=== PATIENT | male | born 1945 | race Caucasian/White ===

== ENCOUNTER → 2016-05-05 | Outpatient (CLI) | payer MEDICARE ==
[~2016-05-05] MED LIST: ASPI81TA85 PO; BACT800T5 PO; DOXY100C PO; IBUP600T26 PO; INSUDET SC; ISOS1TAB12 PO; LISI-542 PO; METF1000 PO; PARO20TA2 PO; PRAV40TA2 PO; SYNT75TA PO; TYLE1TAB5 PO
[2016-05-05 14:55] LABS: BASO % 0.6 % (0.0-1.0); EOS # 0.1 K/mm3 (0.0-0.50); EOS % 1.2 % (0.0-3.0); LARGE UNSTAINED CELL # 0.1 K/mm3 (0.0-0.4); LARGE UNSTAINED CELL % 1.6 % (0.0-4.0); LYMPH # 1.6 K/mm3 (1.5-4.5); MEAN CORPUSCULAR HEMOGLOBIN 30.8 pg (27.0-33.0); MEAN CORPUSCULAR HGB CONC 34.3 g/dl (32.0-36.5); MONO # 0.3 K/mm3 (0.0-0.8); MONO % 5.1 % (0.0-5.0); NEUTROPHILS # 4.1 K/mm3 (1.8-7.7); NEUTROPHILS % 65.6 % (36.0-66.0); PLATELET COUNT, AUTOMATED 178 k/mm3 (150-450); RED CELL DISTRIBUTION WIDTH 13.7 % (11.5-14.5); WHITE BLOOD COUNT 6.3 K/mm3 (4.0-10.0)
[2016-05-05 15:04] LABS: ALBUMIN 4.1 GM/DL (3.2-5.2); ALBUMIN/GLOBULIN RATIO 1.28 (1.00-1.93); ALKALINE PHOSPHATASE 131 U/L (45-117); ALT/SGPT 20 U/L (12-78); ANION GAP 7 MEQ/L (8-16); AST/SGOT 14 U/L (15-37); BILIRUBIN,TOTAL 0.3 MG/DL (0.2-1.0); BLOOD UREA NITROGEN 19 MG/DL (7-18); CALCIUM LEVEL 9.3 MG/DL (8.8-10.2); CARBON DIOXIDE LEVEL 31 MEQ/L (21-32); CHLORIDE LEVEL 104 MEQ/L (98-107); CREATININE FOR GFR 1.06 MG/DL (0.70-1.30); GLOMERULAR FILTRATION RATE > 60.0 (>49); GLUCOSE, FASTING 168 MG/DL (80-110); SODIUM LEVEL 142 MEQ/L (136-145); TOTAL PROTEIN 7.3 GM/DL (6.4-8.2)
[2016-05-05 15:05] LABS: POTASSIUM SERUM 5.2 MEQ/L (3.5-5.1)
== END ==
LOC: M LAB 14:19
PROVIDERS: ATTEND Podiatrist
DX: M19.071 Primary osteoarthritis, right ankle and foot (principal); Z79.899 Other long term (current) drug therapy

== ENCOUNTER → 2016-05-06 | Day surgery (SDC) | payer MEDICARE ==
[~2016-05-06] VITALS: Ht 185.4 cm; Wt 95.0 kg
[~2016-05-06] MED LIST changes: +AMPICILLIN SOD/SULBACTAM SOD 1.5 GM in D5W MINI-BAG PLUS 50 ML IV ONE; +BUPIVACAINE HCL 0.5% 10 ML VIAL As Ordered ONE; +BUPIVACAINE HCL 0.5% 10 ML VIAL XX ONE; +CLINDAMYCIN 600 MG in APPROPRIATE DILUENT 1 EA IV ONE; +CLINDAMYCIN 600 MG/50 ML PREMIX BAG As Ordered ONE; +GENTAMICIN SULF INJ 80MG/2ML VIAL (J1580) As Ordered ONE; +GENTAMICIN SULF INJ 80MG/2ML VIAL (J1580) XX ONE; +LIDOCAINE 2% INJ 100 MG/5 ML SDV (FOR ANES.) As Ordered ONE; +LIDOCAINE 2% MDV 20 ML VIAL As Ordered ONE; +LIDOCAINE 2% MDV 20 ML VIAL XX ONE; +LR 1,000 ML IV SCH; +MIDAZOLAM INJ 2 MG/2 ML VIAL (J2250) As Ordered ONE; +PROPOFOL 200 MG/20 ML VIAL As Ordered ONE; +fentaNYL 100 MCG/2 ML INJECTION (J3010) As Ordered ONE
--- NOTE | 2016-05-06 15:07 | REP ---
Portable right foot three views post op: Comparison is 12/18/2015. The proximal, mid and distal phalanges of the fourth digit and in resected as an interval change. There is resection of the second digit at the level of the proximal shaft of the middle phalange E. This is unchanged. There is an osteotomy through the mid shaft of the fifth digit proximal phalange. This is unchanged. Mineralization and joint spaces are otherwise unremarkable. There is no acute fracture or dislocation. There is a calcaneal Achilles spur, unchanged. Signed by Zuhair Edge MD 05/06/2016 02:59 P
[2016-05-06 15:20] VITALS: BP 152/72
--- NOTE | 2016-05-06 17:23 | RO ---
DATE OF PROCEDURE: 05/06/2016 PREPROCEDURE DIAGNOSIS: Osteomyelitis with stage IV ulcer fourth toe right foot. POSTPROCEDURE DIAGNOSIS: Osteomyelitis with stage IV ulcer fourth toe right foot. PROCEDURES: Fourth toe amputation at the metatarsophalangeal joint right foot. SURGEON: Dr Kip Eldridge DPM MILK BOTTLING MACHINE OPERATOR: ANESTHESIA: Local MAC. HEMOSTASIS: None. ESTIMATED BLOOD LOSS: 25 mL. IRRIGATION: Dilute gentamicin solution with a low pressure pulse lavage system. DESCRIPTION OF PROCEDURE: On 05/06/2016, this 70-year-old male was taken from his hospital room to the operating room and placed on the operating table in a supine position. Following the induction of IV sedation and local and regional anesthesia, the right lower extremity was prepped and draped in the usual aseptic manner. The right lower extremity was elevated 45 degrees from the horizontal plane, sterile draping was completed, right lower extremity was returned to the operating table. FOURTH TOE AMPUTATION METATARSOPHALANGEAL JOINT RIGHT FOOT: Attention was directed to the patient's foot where there was noted to be an ulceration on the lateral surface of the toe down to bone with fragmentation of the proximal phalanx. At this time, a modified racquet incision was made with a longer medial flap than lateral and the incision was taken right along the 1 mm margin of the ulcer. Dissection was then carried down to the capsule where the capsule was entered and the soft tissue attachments to the proximal phalanx were released and the toe was removed from the foot. Utilizing a rongeur, the head of the proximal phalanx was rongeurged and sent to pathology for aerobic and anaerobic cultures. The wound was flushed with 1 liter of the dilute gentamicin solution with the low pressure pulse lavage system. All bleeders as encountered were electrocoagulated. The skin was closed with #3-0 nylon suture in a simple interrupted type fashion. Sterile dressing was applied consisting of Adaptic, 4 x 4's, 4 x 4 splint, Yves and Kerlix. The patient having apparently tolerated the procedure well was taken from the operating room to the recovery room, vital signs stable, patient afebrile, for further monitoring by the anesthesia department. Surgical specimens removed during the operative procedure were sent to Pathology for gross and microscopic examination. Postoperative instructions given on discharge. The patient will be placed on clindamycin 300 mg every 6 hours. His questions were answered.
== END | disposition home or self-care (01) ==
LOC: M SDC 12:34
PROVIDERS: ATTEND Podiatrist
DX: M86.171 Other acute osteomyelitis, right ankle and foot (principal); E11.42 Type 2 diabetes mellitus with diabetic polyneuropathy; E11.51 Type 2 diabetes mellitus with diabetic peripheral angiopathy without gangrene; E11.621 Type 2 diabetes mellitus with foot ulcer; L97.512 Non-pressure chronic ulcer of other part of right foot with fat layer exposed; B35.1 Tinea unguium; E03.9 Hypothyroidism, unspecified; E78.5 Hyperlipidemia, unspecified; I10 Essential (primary) hypertension; K21.9 Gastro-esophageal reflux disease without esophagitis; F32.9 Major depressive disorder, single episode, unspecified; F41.9 Anxiety disorder, unspecified; Z79.899 Other long term (current) drug therapy; Z79.82 Long term (current) use of aspirin; Z86.718 Personal history of other venous thrombosis and embolism
CPT/HCPCS: 28820; 73630; 87070; 87075; 87077; 87186; 87205; 88304; 88311; J1580; J2250; J3010

== ENCOUNTER → 2016-06-10 | Outpatient (REF) | payer MEDICARE ==
[~2016-06-10] MED LIST changes: -AMPICILLIN SOD/SULBACTAM SOD 1.5 GM in D5W MINI-BAG PLUS 50 ML IV ONE; -BUPIVACAINE HCL 0.5% 10 ML VIAL As Ordered ONE; -BUPIVACAINE HCL 0.5% 10 ML VIAL XX ONE; -CLINDAMYCIN 600 MG in APPROPRIATE DILUENT 1 EA IV ONE; -CLINDAMYCIN 600 MG/50 ML PREMIX BAG As Ordered ONE; -GENTAMICIN SULF INJ 80MG/2ML VIAL (J1580) As Ordered ONE; -GENTAMICIN SULF INJ 80MG/2ML VIAL (J1580) XX ONE; -LIDOCAINE 2% INJ 100 MG/5 ML SDV (FOR ANES.) As Ordered ONE; -LIDOCAINE 2% MDV 20 ML VIAL As Ordered ONE; -LIDOCAINE 2% MDV 20 ML VIAL XX ONE; -LR 1,000 ML IV SCH; -MIDAZOLAM INJ 2 MG/2 ML VIAL (J2250) As Ordered ONE; -PROPOFOL 200 MG/20 ML VIAL As Ordered ONE; -fentaNYL 100 MCG/2 ML INJECTION (J3010) As Ordered ONE
== END ==
LOC: M LAB REF 15:16
PROVIDERS: ATTEND Podiatrist
DX: M86.171 Other acute osteomyelitis, right ankle and foot (principal); E11.621 Type 2 diabetes mellitus with foot ulcer

== ENCOUNTER → 2016-06-30 | Outpatient (REF) | payer MEDICARE ==
[~2016-06-30] MED LIST changes: -PARO20TA2 PO; +PARO20TA3 PO
== END ==
LOC: M LAB REF 17:25
PROVIDERS: ATTEND Podiatrist
DX: M86.8X7 Other osteomyelitis, ankle and foot (principal)

== ENCOUNTER → 2016-08-26 | Day surgery (SDC) | payer MEDICARE ==
[~2016-08-26] VITALS: Ht 180.3 cm; Wt 105.2 kg
[~2016-08-26] MED LIST changes: +BUPIVACAINE HCL 0.5% 10 ML VIAL XX ONE; +GABA-283 PO; +HYDROmorphone HCL 1 MG/ML SYRINGE (J1170) IV PRN; +LIDOCAINE 2% MDV 20 ML VIAL IM ONE; +LIDOCAINE 2% MDV 20 ML VIAL XX ONE; +LR 1,000 ML IV ONE; +LR 1,000 ML IV SCH; +MIDAZOLAM INJ 2 MG/2 ML VIAL (J2250) As Ordered ONE; +MORPHINE 2 MG/ML 1ML SYRINGE As Ordered ONE; +MORPHINE 2 MG/ML 1ML SYRINGE IV ONE; +NITR0.4S14 SUBQ; +ONDANSETRON 4MG/2ML VIAL (J2405) IV PRN; +PERCOCET 5MG/325MG TAB PO PRN; +PROPOFOL 200 MG/20 ML VIAL As Ordered ONE; +TOUJ1.2I SC; +VANCOMYCIN 1000 MG/20 ML VIAL (J3370) As Ordered ONE; +VANCOMYCIN HCL 1,000 MG, VIAL MATE ADAPTER 1 EACH in D5W 250 ML IV ONE; +VANCOMYCIN HCL 500 MG/10 ML VIAL (J3370) As Ordered ONE; +[UNRECOGNIZED DRUG - CODE] PO; +fentaNYL 100 MCG/2 ML INJECTION (J3010) IV PRN; +fentaNYL 250 MCG/5 ML INJECTION (J3010) As Ordered ONE
[2016-08-26 15:43] LABS: ALBUMIN 3.4 GM/DL (3.2-5.2); ALBUMIN/GLOBULIN RATIO 0.61 (1.00-1.93); ALKALINE PHOSPHATASE 196 U/L (45-117); ALT/SGPT 18 U/L (12-78); ANION GAP 5 MEQ/L (8-16); AST/SGOT 10 U/L (15-37); BILIRUBIN,TOTAL 0.4 MG/DL (0.2-1.0); BLOOD UREA NITROGEN 16 MG/DL (7-18); CALCIUM LEVEL 9.6 MG/DL (8.8-10.2); CARBON DIOXIDE LEVEL 33 MEQ/L (21-32); CHLORIDE LEVEL 100 MEQ/L (98-107); CREATININE FOR GFR 1.02 MG/DL (0.70-1.30); GLOMERULAR FILTRATION RATE > 60.0 (>42); GLUCOSE, FASTING 160 MG/DL (83-110); POTASSIUM SERUM 4.4 MEQ/L (3.5-5.1); SODIUM LEVEL 138 MEQ/L (136-145)
[2016-08-26 19:45] VITALS: BP 157/74
--- NOTE | 2016-08-26 19:51 | REP ---
RIGHT FOOT: Three views of the right foot are performed. There has been resection of the distal half of the 4th metatarsal. Several radiodense subcentimeter structures are seen in the soft-tissues distal to the remaining metatarsal. The other adjacent osseous structures of the right foot are unchanged. There is evidence of prior resection at the distal aspect of the 5th proximal phalanx and adjacent base of the 5th middle phalanx. There has also been prior resection of the distal end of the 2nd distal phalanx. Signed by Zuhair Tolbert MD 08/27/2016 01:38 P
--- NOTE | 2016-08-27 10:22 | RO ---
DATE OF PROCEDURE: 08/26/2016 PREPROCEDURE DIAGNOSIS: Osteomyelitis fourth metatarsal head right foot. POSTPROCEDURE DIAGNOSIS: Osteomyelitis fourth metatarsal head right foot. PROCEDURE: Fourth metatarsal head resection with implantation of vancomycin beads fourth metatarsal right foot. SURGEON: Kip Eldridge DPM TOBACCO SIZER: None. ANESTHESIA: Local, monitored anesthesia care (MAC). IRRIGATION: Dilute vancomycin 3 liters low pressure pulse lavage system. HEMOSTASIS: None. ESTIMATED BLOOD LOSS: 40 mL. DESCRIPTION OF OPERATION: On 08/26/2016, this 71-year-old white male was taken from his hospital room to the operating room and placed on the operating room table in a supine position. Following the induction of IV sedation, local and regional anesthesia, the right lower extremity was prepped and draped in the usual aseptic manner. Attention was directed to the patient's right foot where there was noted to be a dehiscence at the previous amputation of the fourth toe. An incision was then placed extending 3 cm in a proximal direction over the metatarsal head. There was noted to be pus inside the metatarsal head and collapse of the articular cartilage at the proximal to distal metatarsal shaft region. Utilizing a sagittal saw, an osteotomy was performed through the metatarsal. Good solid bone was noted in the location and the metatarsal head with a portion of the metatarsal shaft was removed. This was sent to micro bacteriology for aerobic and anaerobic cultures. The wound was then irrigated with 3 liters of dilute vancomycin solution. Seven 5 mm vancomycin beads were then placed into the wound. The wound was closed loosely with #3-0 nylon suture. A sterile compressive dressing was applied on the patient's right foot consisting of Adaptic, 4 x 4's, Yves and Kerlix. The patient having apparently tolerated the surgical procedure well was taken from the OR to the recovery room with vital signs stable and the patient afebrile for further monitoring by the anesthesia department. The patient is presently on erythromycin 333 mg one by mouth every 8 hours, this will be tailored according to his culture and sensitivity. His questions were answered.
== END | disposition home or self-care (01) ==
LOC: M SDC 14:55
PROVIDERS: ATTEND Podiatrist
DX: M86.8X7 Other osteomyelitis, ankle and foot (principal); T81.32XA Disruption of internal operation (surgical) wound, not elsewhere classified, initial encounter; Y83.5 Amputation of limb(s) as the cause of abnormal reaction of the patient, or of later complication, without mention of misadventure at the time of the procedure; E11.42 Type 2 diabetes mellitus with diabetic polyneuropathy; M79.674 Pain in right toe(s); E11.51 Type 2 diabetes mellitus with diabetic peripheral angiopathy without gangrene; M86.171 Other acute osteomyelitis, right ankle and foot; E11.621 Type 2 diabetes mellitus with foot ulcer; L97.512 Non-pressure chronic ulcer of other part of right foot with fat layer exposed; B35.1 Tinea unguium; L97.522 Non-pressure chronic ulcer of other part of left foot with fat layer exposed; E03.9 Hypothyroidism, unspecified; E78.5 Hyperlipidemia, unspecified; I10 Essential (primary) hypertension; F99 Mental disorder, not otherwise specified; Z79.899 Other long term (current) drug therapy; F17.200 Nicotine dependence, unspecified, uncomplicated; Z89.421 Acquired absence of other right toe(s)
CPT/HCPCS: 28112; 36415; 73630; 80053; 87070; 87075; 87077; 87186; 87205; 88304; 88311; C1713; J2250; J3010; J3370

== ENCOUNTER → 2016-09-22 | Outpatient (CLI) | payer MEDICARE ==
[~2016-09-22] MED LIST changes: -BUPIVACAINE HCL 0.5% 10 ML VIAL XX ONE; +CLOP75TA2 PO; +GABA-279 PO; -HYDROmorphone HCL 1 MG/ML SYRINGE (J1170) IV PRN; -LIDOCAINE 2% MDV 20 ML VIAL IM ONE; -LIDOCAINE 2% MDV 20 ML VIAL XX ONE; -LR 1,000 ML IV ONE; -LR 1,000 ML IV SCH; -MIDAZOLAM INJ 2 MG/2 ML VIAL (J2250) As Ordered ONE; -MORPHINE 2 MG/ML 1ML SYRINGE As Ordered ONE; -MORPHINE 2 MG/ML 1ML SYRINGE IV ONE; -ONDANSETRON 4MG/2ML VIAL (J2405) IV PRN; +PARO15TA PO; -PERCOCET 5MG/325MG TAB PO PRN; -PROPOFOL 200 MG/20 ML VIAL As Ordered ONE; -VANCOMYCIN 1000 MG/20 ML VIAL (J3370) As Ordered ONE; -VANCOMYCIN HCL 1,000 MG, VIAL MATE ADAPTER 1 EACH in D5W 250 ML IV ONE; -VANCOMYCIN HCL 500 MG/10 ML VIAL (J3370) As Ordered ONE; -fentaNYL 100 MCG/2 ML INJECTION (J3010) IV PRN; -fentaNYL 250 MCG/5 ML INJECTION (J3010) As Ordered ONE
[2016-09-22 11:59] LABS: BASO % 0.5 % (0.0-1.0); EOS # 0.1 K/mm3 (0.0-0.50); EOS % 2.2 % (0.0-3.0); LARGE UNSTAINED CELL % 0.9 % (0.0-4.0); LYMPH # 1.2 K/mm3 (1.5-4.5); LYMPH % 28.3 % (24.0-44.0); MEAN CORPUSCULAR HEMOGLOBIN 30.6 pg (27.0-33.0); MEAN CORPUSCULAR HGB CONC 34.7 g/dl (32.0-36.5); MEAN CORPUSCULAR VOLUME 88.2 fl (80.0-96.0); MONO # 0.2 K/mm3 (0.0-0.8); MONO % 5.1 % (0.0-5.0); NEUTROPHILS # 2.6 K/mm3 (1.8-7.7); PLATELET COUNT, AUTOMATED 252 k/mm3 (150-450); RED CELL DISTRIBUTION WIDTH 14.5 % (11.5-14.5); WHITE BLOOD COUNT 4.1 K/mm3 (4.0-10.0)
[2016-09-22 12:36] LABS: ALBUMIN 3.5 GM/DL (3.2-5.2); ALBUMIN/GLOBULIN RATIO 0.81 (1.00-1.93); ALKALINE PHOSPHATASE 176 U/L (45-117); ALT/SGPT 16 U/L (12-78); ANION GAP 4 MEQ/L (8-16); AST/SGOT 10 U/L (15-37); BILIRUBIN,TOTAL 0.4 MG/DL (0.2-1.0); BLOOD UREA NITROGEN 17 MG/DL (7-18); CALCIUM LEVEL 9.1 MG/DL (8.8-10.2); CARBON DIOXIDE LEVEL 31 MEQ/L (21-32); CHLORIDE LEVEL 103 MEQ/L (98-107); CREATININE FOR GFR 0.88 MG/DL (0.70-1.30); GLOMERULAR FILTRATION RATE > 60.0 (>42); GLUCOSE, FASTING 197 MG/DL (83-110); POTASSIUM SERUM 4.4 MEQ/L (3.5-5.1); SODIUM LEVEL 138 MEQ/L (136-145); TOTAL PROTEIN 7.8 GM/DL (6.4-8.2)
== END ==
LOC: M LAB 11:07
PROVIDERS: ATTEND Podiatrist
DX: Z01.818 Encounter for other preprocedural examination (principal)

== ENCOUNTER → 2016-09-23 | Day surgery (SDC) | payer MEDICARE, MEDICAID ==
[~2016-09-23] VITALS: Ht 180.3 cm; Wt 108.9 kg
[~2016-09-23] MED LIST changes: +AMPICILLIN SOD 2 GM in D5W MINI-BAG PLUS 100 ML IV ONE; +BACITRACIN PWD 50,000 UNITS VIAL As Ordered ONE; +BUPIVACAINE HCL 0.5% 30 ML VIAL As Ordered ONE; +IBUP-1022 PO; -IBUP600T26 PO; +LIDOCAINE 2% INJ 100 MG/5 ML SDV (FOR ANES.) As Ordered ONE; +LIDOCAINE 2% MDV 20 ML VIAL As Ordered ONE; +LR 1,000 ML IV ONE; -METF1000 PO; +METF10004 PO; +MIDAZOLAM INJ 2 MG/2 ML VIAL (J2250) As Ordered ONE; +NEOSPORIN GU IRRIG 20 ML VIAL As Ordered ONE; +ONDANSETRON 4MG/2ML VIAL (J2405) As Ordered ONE; +PROPOFOL 200 MG/20 ML VIAL As Ordered ONE; +VANCOMYCIN 1000 MG/20 ML VIAL (J3370) As Ordered ONE; +VANCOMYCIN HCL 500 MG/10 ML VIAL (J3370) As Ordered ONE; +[UNRECOGNIZED DRUG - CODE] PO; -[UNRECOGNIZED DRUG - CODE] PO; +dexameTHASONE 4 MG/ML 1ML VIAL (J1100) As Ordered ONE; +fentaNYL 100 MCG/2 ML INJECTION (J3010) As Ordered ONE
[2016-09-23 15:01] VITALS: BP 120/50
--- NOTE | 2016-09-23 15:21 | REP ---
For Tony right foot portable study, post op, three views: Comparison 08/26/2016. There is resection of the fourth digit at the mid shaft of the metatarsal as previously. There is new resection of the third digit at the mid shaft of the metatarsal. Radiopaque pellets are identified distal to the third digit metatarsal. There has been previous resection of the fifth digit distal portion of the proximal phalange and proximal portion of the middle phalange . This is unchanged. There has been previous resection of the second digit at the proximal shaft of the middle phalange . This is unchanged. There is a large calcaneal Achilles spur. Mineralization joint spaces otherwise are unremarkable. Signed by Zuhair Edge MD 09/23/2016 03:12 P
--- NOTE | 2016-09-24 08:13 | RO ---
DATE OF PROCEDURE: 09/23/2016 PREPROCEDURE DIAGNOSIS: Osteomyelitis 2nd metatarsal right foot. POSTPROCEDURE DIAGNOSIS: Osteomyelitis 2nd metatarsal right foot. PROCEDURE: Third toe amputation right foot. SURGEON: Dr. Kip Eldridge MANAGER ENGAGEMENT: None. ANESTHESIA: Local MAC. IRRIGATION: Dilute vancomycin solution with a low pressure pulse lavage system. IMPLANTS: 15, 5 mm vancomycin beads and 1/2 iodoform gauze. ESTIMATED BLOOD LOSS: 50 mL. DESCRIPTION OF PROCEDURE: On 09/23/2016 this 71-year-old male was taken from the hospital room to the operating room and placed on the operating table in supine position. Following induction of IV sedation, local and regional anesthesia, the right lower extremity was prepped and draped in the usual aseptic manner. Attention was directed to the patient's right foot where there was a previous incision. This incision was utilized and then two semi-elliptical incisions were then placed on the distal margin of the foot encompassing the third toe allowing a flap to be created to give exposure to the neck of metatarsal. The toe was then removed at the metatarsophalangeal joint. The capital fragment of the metatarsal was noted to be completely fragmented. Initial osteotomy was performed and this was sent to pathology for aerobic and anaerobic cultures. An additional cut was then made into the bone approximately 2 mm proximal to this to ensure good bone. This was solid, firm. No signs of residual osteomyelitis. The second metatarsal was closely in position to this wound. Therefore, it was elected not to be closed. The wound was flushed with 3 liters of dilute vancomycin solution with a low pressure pulsed lavage system and then packed with 15, 5 mm vancomycin beads and 1/2 inch iodoform gauze after appropriate hemostasis was obtained with electrocautery. Dressing was applied consisting of ABDs, 4 x 4s, Yves and Kerlix and Coban. The patient having apparently tolerated the surgical procedure well, was taken from the operating room to the recovery room for further monitoring by the anesthesia department. Surgical specimens were sent to pathology for gross and microscopic examination. Postoperative instructions will be given upon discharge. Postoperative ampicillin 500 mg every 8 hours. His questions were answered.
== END | disposition home or self-care (01) ==
LOC: M SDC 11:50
PROVIDERS: ATTEND Podiatrist
DX: M86.8X7 Other osteomyelitis, ankle and foot (principal); E11.42 Type 2 diabetes mellitus with diabetic polyneuropathy; M79.674 Pain in right toe(s); E11.51 Type 2 diabetes mellitus with diabetic peripheral angiopathy without gangrene; E11.621 Type 2 diabetes mellitus with foot ulcer; L97.512 Non-pressure chronic ulcer of other part of right foot with fat layer exposed; L97.522 Non-pressure chronic ulcer of other part of left foot with fat layer exposed; B35.1 Tinea unguium; I10 Essential (primary) hypertension; E03.9 Hypothyroidism, unspecified; E78.5 Hyperlipidemia, unspecified; Z79.899 Other long term (current) drug therapy; Z79.2 Long term (current) use of antibiotics; Z79.82 Long term (current) use of aspirin; Z79.02 Long term (current) use of antithrombotics/antiplatelets; Z79.84 Long term (current) use of oral hypoglycemic drugs; Z87.891 Personal history of nicotine dependence
CPT/HCPCS: 28810; 73630; 87070; 87075; 87077; 87205; 88304; 88311; C1713; J2250; J2405; J3010; J3370

== ENCOUNTER → 2016-12-10 | Outpatient (REF) | payer MEDICARE, MEDICAID ==
[~2016-12-10] MED LIST changes: -AMPICILLIN SOD 2 GM in D5W MINI-BAG PLUS 100 ML IV ONE; -BACITRACIN PWD 50,000 UNITS VIAL As Ordered ONE; -BUPIVACAINE HCL 0.5% 30 ML VIAL As Ordered ONE; -LIDOCAINE 2% INJ 100 MG/5 ML SDV (FOR ANES.) As Ordered ONE; -LIDOCAINE 2% MDV 20 ML VIAL As Ordered ONE; -LR 1,000 ML IV ONE; -MIDAZOLAM INJ 2 MG/2 ML VIAL (J2250) As Ordered ONE; -NEOSPORIN GU IRRIG 20 ML VIAL As Ordered ONE; -ONDANSETRON 4MG/2ML VIAL (J2405) As Ordered ONE; -PROPOFOL 200 MG/20 ML VIAL As Ordered ONE; -VANCOMYCIN 1000 MG/20 ML VIAL (J3370) As Ordered ONE; -VANCOMYCIN HCL 500 MG/10 ML VIAL (J3370) As Ordered ONE; -dexameTHASONE 4 MG/ML 1ML VIAL (J1100) As Ordered ONE; -fentaNYL 100 MCG/2 ML INJECTION (J3010) As Ordered ONE
== END ==
LOC: M LAB REF 15:10
PROVIDERS: ATTEND Podiatrist
DX: L97.512 Non-pressure chronic ulcer of other part of right foot with fat layer exposed (principal)

== ENCOUNTER → 2017-10-04 | Outpatient (REF) | payer MEDICARE, MEDICAID | LOC: M LAB REF 13:04 | DX: L03.032 Cellulitis of left toe (principal) | CPT/HCPCS: 87186 ==

== ENCOUNTER 2017-11-04 07:45 | Day surgery (SDC) | payer MEDICARE ==
[2017-11-04] MEDS ORDERED: MIDAZOLAM INJ 2 MG/2 ML VIAL (J2250) As Ordered ×2 (08:01)
[2017-11-04] MEDS ORDERED: fentaNYL 100 MCG/2 ML INJECTION (J3010) As Ordered ×4 (08:01→08:31)
[2017-11-04] MEDS ORDERED: LIDOCAINE 2% INJ 100 MG/5 ML SDV (FOR ANES.) As Ordered ×2 (08:02)
[2017-11-04] MEDS ORDERED: PROPOFOL 200 MG/20 ML VIAL As Ordered ×6 (08:02→08:26)
[2017-11-04 08:20] LABS: BEDSIDE GLUCOSE 107 MG/DL (83-110)
[2017-11-04] MEDS: LR 1,000 ML IV ×2 (08:24)
[2017-11-04] MEDS: AMPICILLIN SOD/SULBACTAM SOD 3 GM in D5W MINI-BAG PLUS 100 ML IV (09:39)
[2017-11-04] MEDS: LIDOCAINE 2% MDV 20 ML VIAL As Ordered ×2 (09:44)
[2017-11-04] MEDS: BUPIVACAINE HCL 0.5% 30 ML VIAL As Ordered ×2 (09:44)
[2017-11-04] MEDS: BACITRACIN PWD 50,000 UNITS VIAL As Ordered ×2 (10:02)
[2017-11-04] MEDS ORDERED: ONDANSETRON 4MG/2ML VIAL (J2405) As Ordered ×2 (10:05)
[2017-11-04] MEDS ORDERED: ONDANSETRON 4MG/2ML VIAL (J2405) IV ×2 (10:30)
[2017-11-04] MEDS ORDERED: LR 1,000 ML IV ×2 (10:30)
[2017-11-04] MEDS: NORCO, ANEXSIA 5/325MG TABLET (HYDROcodone/ACETAMINOPHEN) PO ×2 (10:45)
[2017-11-04] MEDS ORDERED: BUPIVACAINE HCL 0.5% 30 ML VIAL As Ordered ×2 (12:18)
[2017-11-04] MEDS ORDERED: LIDOCAINE 2% MDV 20 ML VIAL As Ordered ×2 (12:18)
== END 2017-11-04 11:22 | disposition home or self-care (01) ==
LOC: M SDC 07:45
DX: M86.172 Other acute osteomyelitis, left ankle and foot (principal); I10 Essential (primary) hypertension; E11.9 Type 2 diabetes mellitus without complications; E03.9 Hypothyroidism, unspecified; Z79.82 Long term (current) use of aspirin; Z79.899 Other long term (current) drug therapy; Z79.84 Long term (current) use of oral hypoglycemic drugs
CPT/HCPCS: 28820

== ENCOUNTER → 2017-12-05 | Outpatient (CLI) | payer MEDICARE ==
[2017-12-05 12:32] LABS: BASO % 0.3 % (0.0-1.0); EOS # 0.1 10^3/uL (0.0-0.50); EOS % 1.6 % (0.0-3.0); HEMATOCRIT 38.7 % (42.0-52.0); HEMOGLOBIN 13.3 g/dl (13.5-17.5); IMMATURE GRANULOCYTE % 0.6 % (0-3.0); LYMPH # 1.7 10^3/uL (1.5-4.5); LYMPH % 18.9 % (24.0-44.0); MEAN CORPUSCULAR HEMOGLOBIN 31.1 pg (27.0-33.0); MEAN CORPUSCULAR HGB CONC 34.4 g/dl (32.0-36.5); MEAN CORPUSCULAR VOLUME 90.6 fl (80.0-96.0); MONO # 0.5 10^3/uL (0.0-0.8); MONO % 5.6 % (0.0-5.0); NEUTROPHILS # 6.6 10^3/uL (1.8-7.7); PLATELET COUNT, AUTOMATED 300 10^3/uL (150-450); RED BLOOD COUNT 4.27 10^6/uL (4.30-6.10); RED CELL DISTRIBUTION WIDTH 12.8 % (11.5-14.5)
[2017-12-05 22:44] LABS: ALKALINE PHOSPHATASE 140 U/L (45-117); ALT/SGPT 24 U/L (12-78); ANION GAP 11 MEQ/L (8-16); AST/SGOT 22 U/L (7-37); BILIRUBIN,TOTAL 0.3 MG/DL (0.2-1.0); BLOOD UREA NITROGEN 17 MG/DL (7-18); CALCIUM LEVEL 9.4 MG/DL (8.8-10.2); CARBON DIOXIDE LEVEL 25 MEQ/L (21-32); CHLORIDE LEVEL 105 MEQ/L (98-107); CREATININE FOR GFR 1.15 MG/DL (0.70-1.30); GLOMERULAR FILTRATION RATE > 60.0 (>42); GLUCOSE, FASTING 243 MG/DL (70-100); POTASSIUM SERUM 4.8 MEQ/L (3.5-5.1); SODIUM LEVEL 141 MEQ/L (136-145); TOTAL PROTEIN 8.2 GM/DL (6.4-8.2)
[2017-12-05 23:56] LABS: ALBUMIN/GLOBULIN RATIO 0.95 (1.00-1.93)
== END ==
LOC: M LAB 11:57
DX: Z01.818 Encounter for other preprocedural examination (principal); M79.672 Pain in left foot
CPT/HCPCS: 80053

== ENCOUNTER → 2017-12-09 | Day surgery (SDC) | payer MEDICARE ==
[~2017-12-09] MED LIST changes: -ASPI81TA85 PO; -BACT800T5 PO; -CLOP75TA2 PO; -DOXY100C PO; -GABA-279 PO; -GABA-283 PO; +GLYCOPYRROLATE INJ 0.2 MG/ML 2 ML VIAL As Ordered; -IBUP-1022 PO; -INSUDET SC; -ISOS1TAB12 PO; +LIDOCAINE 2% INJ 100 MG/5 ML SDV (FOR ANES.) As Ordered; -LISI-542 PO; -METF10004 PO; +MIDAZOLAM INJ 2 MG/2 ML VIAL (J2250) As Ordered; -NITR0.4S14 SUBQ; +ONDANSETRON 4MG/2ML VIAL (J2405) As Ordered; -PARO15TA PO; -PARO20TA3 PO; -PRAV40TA2 PO; +PROPOFOL 200 MG/20 ML VIAL As Ordered; -SYNT75TA PO; -TOUJ1.2I SC; -TYLE1TAB5 PO; -[UNRECOGNIZED DRUG - CODE] PO; +ePHEDrine SULFATE 25 MG/5 ML(5MG/ML) SYRINGE As Ordered; +fentaNYL 100 MCG/2 ML INJECTION (J3010) As Ordered
[2017-12-09] MEDS: LR 1,000 ML IV (10:31)
[2017-12-09 10:40] LABS: BEDSIDE GLUCOSE 146 MG/DL (83-110)
[2017-12-09] MEDS: VANCOMYCIN HCL 500 MG/10 ML VIAL (J3370) As Ordered (11:20)
[2017-12-09] MEDS: AMPICILLIN SOD/SULBACTAM SOD 1.5 GM in D5W 50 ML IV (11:48)
[2017-12-09] MEDS: LIDOCAINE 2% MDV 20 ML VIAL As Ordered (11:54)
[2017-12-09] MEDS: BUPIVACAINE HCL 0.5% 10 ML VIAL As Ordered (11:54)
[2017-12-09] MEDS: cefTRIAXone SOD 1 GM VIAL (J0696) As Ordered (12:19)
[2017-12-09] MEDS: BACITRACIN PWD 50,000 UNITS VIAL As Ordered (12:19)
[2017-12-09] MEDS: NEOSPORIN GU IRRIG 20 ML VIAL As Ordered (12:20)
== END | disposition home or self-care (01) ==
LOC: M SDC 09:58
DX: L97.522 Non-pressure chronic ulcer of other part of left foot with fat layer exposed (principal); E11.51 Type 2 diabetes mellitus with diabetic peripheral angiopathy without gangrene; E11.621 Type 2 diabetes mellitus with foot ulcer; E11.42 Type 2 diabetes mellitus with diabetic polyneuropathy; I10 Essential (primary) hypertension; E78.5 Hyperlipidemia, unspecified; Z79.899 Other long term (current) drug therapy; Z79.84 Long term (current) use of oral hypoglycemic drugs; Z79.82 Long term (current) use of aspirin
CPT/HCPCS: 28820

== ENCOUNTER → 2017-12-28 | Outpatient (REF) | payer MEDICARE | LOC: M LAB REF 10:32 | DX: L03.119 Cellulitis of unspecified part of limb (principal) | CPT/HCPCS: 87186 ==

== ENCOUNTER → 2018-03-16 | Outpatient (REF) | payer MEDICARE ==
[~2018-03-16] MED LIST changes: +AMOX875T2 PO; +ASPI81TA85 PO; +BACT800T5 PO; +CLOP75TA2 PO; +DOXY100C PO; +GABA-1171 PO; +GABA-845 PO; -GLYCOPYRROLATE INJ 0.2 MG/ML 2 ML VIAL As Ordered; +IBUP-1022 PO; +INSUDET SC; +ISOS1TAB12 PO; -LIDOCAINE 2% INJ 100 MG/5 ML SDV (FOR ANES.) As Ordered; +LISI-542 PO; +METF10004 PO; -MIDAZOLAM INJ 2 MG/2 ML VIAL (J2250) As Ordered; +NITR0.4S14 SUBQ; -ONDANSETRON 4MG/2ML VIAL (J2405) As Ordered; +PARO15TA PO; +PARO20TA3 PO; +PRAV40TA2 PO; -PROPOFOL 200 MG/20 ML VIAL As Ordered; +SERT-155 PO; +SYNT75TA PO; +TOUJ1.2I SC; +TYLE1TAB5 PO; +[UNRECOGNIZED DRUG - CODE] PO; -ePHEDrine SULFATE 25 MG/5 ML(5MG/ML) SYRINGE As Ordered; -fentaNYL 100 MCG/2 ML INJECTION (J3010) As Ordered
== END ==
LOC: M LAB REF 15:41
PROVIDERS: ATTEND Podiatrist
DX: L03.032 Cellulitis of left toe (principal)

== ENCOUNTER → 2018-03-29 | Outpatient (REF) | payer MEDICARE | LOC: M LAB REF 13:46 | PROVIDERS: ATTEND Podiatrist | DX: M86.9 Osteomyelitis, unspecified (principal) ==

== ENCOUNTER 2018-04-11 14:18 | Day surgery (SDC) | payer MEDICAID, MEDICARE ==
[~2018-04-11] VITALS: Ht 180.3 cm; Wt 107.0 kg
[2018-04-11] MEDS ORDERED: AMPICILLIN SOD/SULBACTAM SOD 3 GM in D5W MINI-BAG PLUS 100 ML IV ONE (14:45)
[2018-04-11] MEDS ORDERED: UNASYN 3 GM VIAL As Ordered ONE (14:59)
[2018-04-11] MEDS ORDERED: LIDOCAINE 2% MDV 20 ML VIAL As Ordered ONE (15:18)
[2018-04-11] MEDS ORDERED: BUPIVACAINE HCL 0.5% 10 ML VIAL As Ordered ONE (15:18)
[2018-04-11 15:43] LABS: BASO % 0.4 % (0.0-1.0); EOS # 0.1 10^3/uL (0.0-0.50); EOS % 1.6 % (0.0-3.0); HEMATOCRIT 37.2 % (42.0-52.0); HEMOGLOBIN 12.6 g/dl (13.5-17.5); LYMPH # 1.3 10^3/uL (1.5-4.5); LYMPH % 19.3 % (24.0-44.0); MEAN CORPUSCULAR HEMOGLOBIN 30.1 pg (27.0-33.0); MEAN CORPUSCULAR HGB CONC 33.9 g/dl (32.0-36.5); MEAN CORPUSCULAR VOLUME 88.8 fl (80.0-96.0); MONO # 0.4 10^3/uL (0.0-0.8); MONO % 6.3 % (0.0-5.0); NEUTROPHILS # 4.9 10^3/uL (1.8-7.7); NEUTROPHILS % 72.3 % (36.0-66.0); PLATELET COUNT, AUTOMATED 284 10^3/uL (150-450); RED BLOOD COUNT 4.19 10^6/uL (4.30-6.10); WHITE BLOOD COUNT 6.8 10^3/uL (4.0-10.0)
[2018-04-11 16:03] LABS: ALBUMIN 3.9 GM/DL (3.2-5.2); ALT/SGPT 26 U/L (12-78); BILIRUBIN,TOTAL 0.5 MG/DL (0.2-1.0); BLOOD UREA NITROGEN 18 MG/DL (7-18); CARBON DIOXIDE LEVEL 28 MEQ/L (21-32); CHLORIDE LEVEL 104 MEQ/L (98-107); GLOMERULAR FILTRATION RATE > 60.0 (>42); GLUCOSE, FASTING 105 MG/DL (70-100); POTASSIUM SERUM 4.8 MEQ/L (3.5-5.1); SODIUM LEVEL 141 MEQ/L (136-145); TOTAL PROTEIN 7.7 GM/DL (6.4-8.2)
[2018-04-11] MEDS ORDERED: MIDAZOLAM INJ 2 MG/2 ML VIAL (J2250) As Ordered ONE (16:29)
[2018-04-11] MEDS ORDERED: fentaNYL 100 MCG/2 ML INJECTION (J3010) As Ordered ONE (16:30)
[2018-04-11] MEDS ORDERED: GENTAMICIN SULF INJ 80MG/2ML VIAL (J1580) As Ordered ONE (16:47)
[2018-04-11] MEDS ORDERED: PROPOFOL 200 MG/20 ML VIAL As Ordered ONE (16:54)
[2018-04-11] MEDS ORDERED: PERCOCET 5MG/325MG TAB PO PRN (17:30)
[2018-04-11] MEDS ORDERED: LR 1,000 ML IV SCH (17:30)
[2018-04-11] MEDS ORDERED: METOCLOPRAMIDE INJ 10MG/2ML VIAL (J2765) IV PRN (17:30)
[2018-04-11] MEDS ORDERED: ONDANSETRON 4MG/2ML VIAL (J2405) IV PRN (17:30)
[2018-04-11] MEDS ORDERED: MEPERIDINE INJ 25 MG/ML VIAL (J2175) IV PRN (17:30)
[2018-04-11] MEDS ORDERED: fentaNYL 100 MCG/2 ML INJECTION (J3010) IV PRN (17:30)
[2018-04-11 18:45] VITALS: BP 153/74
--- NOTE | 2018-04-11 19:49 | REP ---
PORTABLE LEFT FOOT COMPLETE: 04/11/2018. Clinical history: Postoperative views requested. Comparison: 12/09/2017. Findings: Four views are provided. There has been interval resection of the second toe at the level of the distal head of the distal phalanx and revision of the previously resected great toe with further resection of its proximal phalanx toward the metaphysis. There are no other interval changes. Electronically Signed by Willy Rod MD 04/11/2018 08:52 P
--- NOTE | 2018-04-12 12:27 | RO ---
DATE OF PROCEDURE: 04/11/2018 PREPROCEDURE DIAGNOSIS: Osteomyelitis distal phalanx second toe left foot. POSTPROCEDURE DIAGNOSIS: Osteomyelitis distal phalanx second toe left foot. PROCEDURE: Partial second toe amputation left foot. SURGEON: Kip Eldridge DPM ROAD MANAGER: None. ANESTHESIA: Local, monitored anesthesia care (MAC). IRRIGATION: Dilute gentamicin solution with a low pressure pulse lavage system. HEMOSTASIS: None. HARDWARE UTILIZED: None. ESTIMATED BLOOD LOSS: Less than 5 mL. DESCRIPTION OF PROCEDURE: On 04/11/2018, this 72-year-old white male was taken from his hospital room to the operating room and placed on the operating room table in a supine position. Following the induction of IV sedation, local and regional anesthesia, the left lower extremity was prepped and draped in the usual aseptic manner. Attention was directed to the patient's left toe. There was noted to be an area of dark necrosis on the distal aspect of the second toe of the left foot with an ulcer extending to bone. X-rays revealed osteomyelitis of the distal phalanx. At this time, a modified fishmouth incision was placed just distal to the proximal interphalangeal joint of the second toe. Dissection was carried straight down to bone. All bleeders as encountered were electrocoagulated. An osteotomy was then performed just proximal to the head of the proximal phalanx at the anatomical neck from dorsal to plantar through and through and the toe was removed. The distal phalanx was dissected away and sent for bone culture. Any remaining bleeders were electrocoagulated and the wound was irrigated with 1 liter of dilute gentamicin solution with a low pressure pulse lavage system. The skin was closed in a simple interrupted fashion with #3-0 nylon. Dry sterile dressing was applied consisting of Adaptic, 4x4s, Yves, Kerlix and Coban. The patient having apparently tolerated the surgical procedure well was taken from the operating room (OR) to the recovery room for further monitoring by the anesthesia department. The patient is presently on ampicillin 500 mg every 6 hours. This will be changed according to his bone cultures if necessary.
== END 2018-04-11 19:00 | disposition home or self-care (01) ==
LOC: M SDC 14:18
PROVIDERS: ATTEND Podiatrist
DX: E11.42 Type 2 diabetes mellitus with diabetic polyneuropathy (principal); E11.51 Type 2 diabetes mellitus with diabetic peripheral angiopathy without gangrene; E11.621 Type 2 diabetes mellitus with foot ulcer; L97.524 Non-pressure chronic ulcer of other part of left foot with necrosis of bone; L03.032 Cellulitis of left toe; I10 Essential (primary) hypertension; E78.5 Hyperlipidemia, unspecified; E03.9 Hypothyroidism, unspecified; G47.30 Sleep apnea, unspecified; Z79.82 Long term (current) use of aspirin; Z79.84 Long term (current) use of oral hypoglycemic drugs; Z79.899 Other long term (current) drug therapy
CPT/HCPCS: 28825; 36415; 73630; 80053; 85025; 87070; 87075; 87077; 87186; 87205; 88307; 88311; J1580; J2250; J3010

== ENCOUNTER → 2018-07-25 | Outpatient (REF) | payer MEDICARE | LOC: M LAB REF 17:23 | PROVIDERS: ATTEND Podiatrist | DX: L03.032 Cellulitis of left toe (principal) ==

== ENCOUNTER → 2018-10-02 | Outpatient (REF) | payer MEDICARE | LOC: M LAB REF 15:38 | PROVIDERS: ATTEND Podiatrist | DX: M79.675 Pain in left toe(s) (principal); L03.032 Cellulitis of left toe ==

== ENCOUNTER → 2019-01-10 | Outpatient (REF) | payer MEDICARE ==
[~2019-01-10] MED LIST changes: -SERT-155 PO; +SERT50TA29 PO
== END ==
LOC: M LAB REF 17:00
PROVIDERS: ATTEND Podiatrist
DX: L03.032 Cellulitis of left toe (principal); M79.672 Pain in left foot

== ENCOUNTER → 2019-01-25 | Outpatient (REF) | payer MEDICARE | LOC: M LAB REF 14:34 | PROVIDERS: ATTEND Podiatrist | DX: M86.9 Osteomyelitis, unspecified (principal); M79.672 Pain in left foot ==

== ENCOUNTER 2019-02-14 11:18 | Inpatient (IN) | payer MEDICARE ==
[~2019-02-14] VITALS: Ht 180.3 cm; Wt 118.9 kg
[2019-02-14] MEDS ORDERED: GABA-843 PO ×2 (11:36→12:37)
[2019-02-14] MEDS ORDERED: AMOX875T2 PO (11:36)
[2019-02-14] MEDS ORDERED: TRES1INJ SQ (11:36)
[2019-02-14] MEDS ORDERED: VANCOMYCIN HCL 1,000 MG, VIAL MATE ADAPTER 1 EACH in D5W 250 ML IV ONE (11:45)
[2019-02-14 12:19] LABS: BASO % 0.6 % (0.0-1.0); EOS # 0.1 10^3/uL (0.0-0.5); EOS % 2.2 % (0.0-3.0); HEMOGLOBIN 12.7 g/dl (13.5-17.5); LYMPH # 1.2 10^3/uL (1.5-5.0); LYMPH % 23.9 % (24.0-44.0); MEAN CORPUSCULAR HEMOGLOBIN 29.8 pg (27.0-33.0); MEAN CORPUSCULAR HGB CONC 32.6 g/dl (32.0-36.5); MEAN CORPUSCULAR VOLUME 91.5 fl (80.0-96.0); MONO # 0.3 10^3/uL (0.0-0.8); MONO % 5.6 % (0.0-5.0); NEUTROPHILS # 3.4 10^3/uL (1.5-8.5); NEUTROPHILS % 67.3 % (36.0-66.0); PLATELET COUNT, AUTOMATED 320 10^3/uL (150-450); RED BLOOD COUNT 4.26 10^6/uL (4.30-6.10)
[2019-02-14] MEDS ORDERED: CLOP75TA2 PO (12:23)
[2019-02-14] MEDS ORDERED: IBUP200C28 PO (12:37)
--- NOTE | 2019-02-14 12:51 | REP ---
Four views left foot: 02/14/2019. Indication: Foot pain. Comparison: 04/11/2018. Findings: There appears to be ulceration and erosion of the distal third new phalanx. Partial amputations of the first and second toes are redemonstrated. There is no evidence of acute fracture. Peripheral vascular disease is noted. Impression: Suspected ulceration as well as underlying osseous erosion of the distal third toe. Please correlate clinically. Stable sequelae of first and second distal phalanx amputations. Electronically Signed by Jason Ledesma DO 02/14/2019 12:42 P
[2019-02-14 12:52] LABS: ALBUMIN 3.4 GM/DL (3.2-5.2); ALT/SGPT 21 U/L (12-78); BILIRUBIN,TOTAL 0.3 MG/DL (0.2-1.0); BLOOD UREA NITROGEN 21 MG/DL (7-18); C REACTIVE PROTEIN QUANTITATIV 6.83 MG/DL (0.00-0.30); CALCIUM LEVEL 9.5 MG/DL (8.8-10.2); CARBON DIOXIDE LEVEL 28 MEQ/L (21-32); CHLORIDE LEVEL 107 MEQ/L (98-107); CREATININE FOR GFR 0.98 MG/DL (0.70-1.30); GLOMERULAR FILTRATION RATE > 60.0 (>42); GLUCOSE, FASTING 89 MG/DL (70-100); SODIUM LEVEL 141 MEQ/L (136-145); TOTAL PROTEIN 7.7 GM/DL (6.4-8.2)
[2019-02-14 13:06] LABS: INR 1.03; PROTHROMBIN TIME 13.2 SECONDS (11.8-14.0)
[2019-02-14 13:11] LABS: ERYTHROCYTE SEDIMENTATION RATE 85 mm/hr (0-20)
--- NOTE | 2019-02-14 13:27 | HPEPDOC ---
[facility] Medical History & Physical Date of Admission Feb 14, 2019 Date of Service: Feb 14, 2019 History and Physical CHIEF COMPLAINT: 3rd L toe necrosis HISTORY OF PRESENT ILLNESS: Pt is a 73yoM with PMH of DM II insulin-dependent, hx of multiple LE toe amputations follows with Dr. Johnson and complicated with diabetic neuropathy, cataracts, hypertension, hyperlipidemia, hypothyroidism, anxiety and depression and was sent over from the podiatry office for necrotic toe needing amputation. Patient reports within the last week, on Tuesday, 5 days ago, patient started to have subjective fevers, chills, and had an episode of syncope where he got up and subsequently went to sleep. He denies taking any medications or having further workup, during this time. He denies any headaches, changes in vision, chest pain, shortness of breath, nausea, vomiting, abdominal pain, issues with voiding or stooling, no numbness and tingling in the fingers, no changes in numbness in the lower extremities, denies any lower extremity pain. He was evaluated by podiatry today and sent over to [facility] ED. In the ED, patients vital signs are stable. The exception of slight hypertension ranging from systolics of 130s to 160s, he was afebrile, laboratory findings with no leukocytosis, ESR of 85, CRP of 6.83, R: Phosphatase 138, hemoglobin A1c of 6.5, creatinine is 0.98 with a GFR greater than 60, left foot x-ray revealing osseous erosion of the distal third toe with stable amputations of the first and second. Recent amputation was on 04/11/2018 where patient had partial amputation of the left second toe secondary to osteomyelitis. He also has had wound culture on the left third toe on 01/25/2019, revealing moderate Staphylococcus aureus sensitive to IV vancomycin, he also has had left third toe culture on 01/10/19 St aphylococcus aureus and Streptococcus group G, 10/02/18: pt grew Citrobacter braakii, Staphylococcus aureus, Enterococcus faecalis, and Streptococcus coagulase negative species. ROS: 10 point review of systems are negative except per above. PMH: See above. PSH: Right fifth distal phalanx of the foot resected, history of hammertoe ulcerations with DIP arthroplasty, 03/06/14: Proximal right fifth toe interphalangeal joint arthroplasty, second dairy to ulcerations of the right hammertoe, fifth toe, right buttock cyst removal, 04/11/18:Left second toe, partial amputation secondary to osteomyelitis,12/09/17: Left hallux partial amputation due to probable osteomyelitis, 09/23/16: Right third toe amputation secondary to osteomyelitis, 08/26/16 right fourth metatarsal head resection with implantation of vancomycin beads of the fourth metatarsal foot, 05/06/16: Fourth toe amputation at metatarsophalangeal joint of the right foot secondary to osteomyelitis with stage IV ulcer, 12/18/15: Partial second toe amputation at the middle phalanx of the right foot secondary to osteomyelitis, 12/31/14 terminal sy me L hallux amputation of the left foot secondary to osteomyelitis. Family history: Sr. with a history of pancreatic cancer, mother with stomach cancer, another sister with brain cancer. 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 Allergies: NKDA HOME MEDICATIONS: Please see below. PHYSICAL EXAMINATION: VITAL SIGNS: see above GENERAL APPEARANCE: male in no acute distress, pleasant. HEENT:. Normocephalic, atraumatic, moist mucous membranes, Mallampati score of 4. CARDIOVASCULAR:, S1, S2, no murmurs. LUNGS:. Clear to auscultation bilaterally. ABDOMEN:, Positive bowel sounds, soft, not guarded. MUSCULOSKELETAL: One to 2+ edema on the left lower extremity, no edema on the right, left foot third digit positive for pustular drainage, capillary refill less than 3 seconds, dorsalis pedis and posterior tibial pulses 1-2+. NEUROLOGICAL: Alert and oriented 3. PSYCHIATRIC:, Appropriate affect, has capacity. LABORATORY DATA: See below. IMAGING: see Above MICROBIOLOGY: Please see below. ASSESSMENT: Pt is a 73yoM with PMH of DM II insulin-dependent, surgical history of multiple toe amputations follows with Dr. Johnson and complicated with diabetic neuropathy, cataracts, hypertension, hyperlipidemia, hypothyroidism, anxiety and depression and was sent over from the podiatry office for necrotic toe needing amputation of the third left digit. . PLAN: #Osteomyelitis of the third left toe: Consult should podiatry, spoke with him regarding plan. We'll make patient nothing by mouth with amputation planned for 02/15/2019, hold IV fluids, continue Lovenox for DVT prophylaxis, hold 6 hours prior to operation, consult ID for antibiotic management, PT eval, follow-up on cultures, patient's revised cardiac index score 0, clear for surgery. #Diabetes: Hold home insulin, place on insulin sliding scale, patient does report recent history of hypoglycemia, continue diabetic management. #HTN: cont home meds #HLD: cont home meds #DM neuropathy: cont home meds #hypothyroidism: cont home meds #mood disorder: cont home meds #tobacco abuse: educated pt on tobacco cessation #DVT ppx: lovenox Full code Vital Signs Vital Signs Date Time Temp Pulse Resp B/P (MAP) Pulse Ox O2 Delivery O2 Flow Rate FiO2 02/14/19 11:48 02/14/19 11:19 96.0 59 18 100 Laboratory Data Labs 24H Laboratory Tests 2 02/14/19 12:01: Immature Granulocyte % (Auto) 0.4, Neutrophils (%) (Auto) 67.3H, Lymphocytes (%) (Auto) 23.9L, Monocytes (%) (Auto) 5.6H, Eosinophils (%) (Auto) 2.2, Basophils (%) (Auto) 0.6, Neutrophils # (Auto) 3.4, Lymphocytes # (Auto) 1.2L, Monocytes # (Auto) 0.3, Eosinophils # (Auto) 0.1, Basophils # (Auto) 0.0, Nucleated Red Blood Cells % (auto) 0.0, Erythrocyte Sedimentation Rate 85H, Prothrombin Time 13.2, Prothromb Time International Ratio 1.03, Anion Gap 6L, Glomerular Filtration Rate > 60.0, Calcium Level 9.5, Total Bilirubin 0.3, Aspartate Amino Transf (AST/SGOT) 19, Alanine Aminotransferase (ALT/SGPT) 21, Alkaline Phosphatase 138H, C-Reactive Protein, Quantitative 6.83H, Total Protein 7.7, Albumin 3.4, Albumin/Globulin Ratio 0.79L CBC/BMP Laboratory Tests 02/14/19 12:01 Microbiology Microbiology 02/14/19 Wound Culture, Received Pending 02/14/19 Blood Culture, Received Pending 02/14/19 Blood Culture, Received Pending Home Medications Scheduled Amoxicillin/Potassium Clav (Amox-Clav 875-125 mg Tablet) 1 Each Tablet, 1 TAB PO BID FILLED 02/05/19 FOR 14 DAYS Clopidogrel Bisulfate (Clopidogrel) 75 Mg Tablet, 75 MG PO DAILY PATIENT STATES HE RAN OUT OF THIS MEDICATION ABOUT 2 WEEKS AGO AND CALLED MD TO REFILL, BUT HASN'T GOTTEN REFILLS YET Gabapentin (Gabapentin) 300 Mg Capsule, 300 MG PO DAILY Gabapentin (Gabapentin) 300 Mg Capsule, 600 MG PO QHS Ibuprofen (Ibuprofen) 200 Mg Capsule, 400 MG PO DAILY Insulin Degludec (Tresiba Flextouch U-200) 200 Unit/1 Ml Insuln.pen, 50 UNITS SQ BID PATIENT STATES HE HIS SUGARS HAVE BEEN RUNNING LOW IN THE AFTERNOON SO HE'S ONLY BEEN USING AT NIGHT Isosorbide Mononitrate (Isosorbide Mononitrate) 10 Mg Tab, 10 MG PO BID Levothyroxine Sodium (Synthroid) 75 Mcg Tab, 75 MCG PO DAILY Lisinopril (Lisinopril) 5 Mg Tab, 5 MG PO DAILY Metformin HCl (Metformin HCl) 1,000 Mg Tab, 1,000 MG PO BID Pravastatin Sodium (Pravastatin Sodium) 40 Mg Tab, 40 MG PO QHS Sertraline HCl (Sertraline HCl) 50 Mg Tab, 50 MG PO DAILY Allergies Coded Allergies: No Known Allergies (Unverified , 11/04/17) A-FIB/CHADSVASC A-FIB History Current/History of A-Fib/PAF?: No JUAN DUNAWAY MD Feb 14, 2019 13:27
[2019-02-14] MEDS ORDERED: MOM 30ML SUSPENSION UDC PO PRN (13:30)
[2019-02-14] MEDS ORDERED: MAALOX 30 ML SUSP *UDC PO PRN (13:30)
[2019-02-14] MEDS ORDERED: DEXTROSE 50% 50 ML SYRINGE IV PRN (14:00)
[2019-02-14] MEDS ORDERED: GLUCAGON FOR INJ 1 MG VIAL (J1610) SC PRN (14:00)
[2019-02-14] MEDS ORDERED: GLUCOSE 4 GM CHEW TABLET PO PRN (14:00)
[2019-02-14 15:02] LABS: HEMOGLOBIN A1c 6.5 %
[2019-02-14 16:00] VITALS: BP 160/67
[2019-02-14] MEDS ORDERED: VANCOMYCIN HCL 1,000 MG in IV FLUID PLACE HOLDER 1 EA IV SCH (16:00)
[2019-02-14] MEDS: HumaLOG INSULIN (NovoLOG) PER UNIT SC SCH (17:19)
[2019-02-14] MEDS: ENOXAPARIN 40 MG/0.4 ML SYRINGE (J1650) SC SCH (17:20)
[2019-02-14] MEDS: ceFAZolin SOD 2 GM in IV 1 EA IV SCH (18:19)
[2019-02-14 20:05] VITALS: BP 168/79
[2019-02-14] MEDS: PRAVASTATIN 20 MG TAB PO SCH (20:12)
[2019-02-14] MEDS: DOCUSATE SODIUM 100 MG CAP PO SCH (20:12)
[2019-02-14] MEDS: GABAPENTIN 300 MG CAP PO SCH (20:12)
[2019-02-14] MEDS ORDERED: ISOSORBIDE MONONITRATE 10MG TABLET PO SCH (21:00)
[2019-02-14 21:57] VITALS: BP 190/89
[2019-02-14] MEDS: ISOSORBIDE MONONITRATE 10MG TABLET PO SCH (21:59)
[2019-02-14 22:00] VITALS: BP 147/71
[2019-02-15] MEDS: ceFAZolin SOD 2 GM in IV 1 EA IV SCH ×3 (00:33→16:38)
[2019-02-15 06:00] VITALS: BP 137/85
[2019-02-15] MEDS ORDERED: LEVOTHYROXINE 75MCG TABLET (0.075MG) PO SCH (06:00)
[2019-02-15] MEDS: D5W/0.45% SODIUM CHLORIDE 1,000 ML IV SCH ×3 (06:24→22:55)
[2019-02-15] MEDS: LEVOTHYROXINE 75MCG TABLET (0.075MG) PO SCH (06:24)
[2019-02-15 07:04] LABS: ALBUMIN 2.9 GM/DL (3.2-5.2); ALT/SGPT 17 U/L (12-78); BILIRUBIN,TOTAL 0.8 MG/DL (0.2-1.0); BLOOD UREA NITROGEN 17 MG/DL (7-18); CALCIUM LEVEL 8.9 MG/DL (8.8-10.2); CARBON DIOXIDE LEVEL 28 MEQ/L (21-32); CHLORIDE LEVEL 107 MEQ/L (98-107); CREATININE FOR GFR 0.99 MG/DL (0.70-1.30); GLOMERULAR FILTRATION RATE > 60.0 (>42); GLUCOSE, FASTING 69 MG/DL (70-100); POTASSIUM SERUM 3.8 MEQ/L (3.5-5.1); SODIUM LEVEL 140 MEQ/L (136-145); TOTAL PROTEIN 7.5 GM/DL (6.4-8.2)
[2019-02-15] MEDS: HumaLOG INSULIN (NovoLOG) PER UNIT SC SCH ×3 (07:30→18:39)
--- NOTE | 2019-02-15 07:38 | IPNPDOC ---
Date Seen The patient was seen on 02/15/19. Progress Note SUBJECTIVE: Patient had no o/n events, plan for surgery 02/16. OBJECTIVE PHYSICAL EXAMINATION: VITAL SIGNS: see above GENERAL APPEARANCE: male in no acute distress, pleasant. HEENT:. Normocephalic, atraumatic, moist mucous membranes, Mallampati score of 4. CARDIOVASCULAR:, S1, S2, no murmurs. LUNGS:. Clear to auscultation bilaterally. ABDOMEN:, Positive bowel sounds, soft, not guarded. MUSCULOSKELETAL: One to 2+ edema on the left lower extremity, no edema on the right, left foot third digit positive for pustular drainage, capillary refill less than 3 seconds, dorsalis pedis and posterior tibial pulses 1-2+. NEUROLOGICAL: Alert and oriented 3. PSYCHIATRIC:, Appropriate affect, has capacity. LABORATORY DATA: See below. IMAGING: see Above MICROBIOLOGY: Please see below. ASSESSMENT: Pt is a 73yoM with PMH of DM II insulin-dependent, surgical history of multiple toe amputations follows with Dr. Johnson and complicated with diabetic neuropathy, cataracts, hypertension, hyperlipidemia, hypothyroidism, anxiety and depression and was sent over from the podiatry office for necrotic toe needing amputation of the third left digit. . PLAN: #Osteomyelitis of the third left toe: Consult should podiatry, spoke with him regarding plan. We'll make patient nothing by mouth with amputation planned for 02/16/2019, hold IV fluids, continue Lovenox for DVT prophylaxis, hold 6 hours prior to operation, follow up with ID for antibiotic management, PT eval, follow-up on cultures, patient's revised cardiac index score 0, clear for surgery. #Diabetes: Hold home insulin, place on insulin sliding scale, patient does report recent history of hypoglycemia, continue diabetic management. #HTN: cont home meds #HLD: cont home meds #DM neuropathy: cont home meds #hypothyroidism: cont home meds #mood disorder: cont home meds #tobacco abuse: educated pt on tobacco cessation #DVT ppx: lovenox Full code VS, I&O, 24H, Fishbone Vital Signs/I&O Vital Signs Date Time Temp Pulse Resp B/P (MAP) Pulse Ox O2 Delivery O2 Flow Rate FiO2 02/15/19 06:00 98.1 57 18 137/85 (102) 93 02/14/19 22:00 Room Air I&O- Last 24 Hours up to 6 AM 02/15/19 06:00 Intake Total 620 ml Balance 620 ml Laboratory Data 24H LABS Laboratory Tests 2 02/14/19 12:01: Immature Granulocyte % (Auto) 0.4, Neutrophils (%) (Auto) 67.3H, Lymphocytes (%) (Auto) 23.9L, Monocytes (%) (Auto) 5.6H, Eosinophils (%) (Auto) 2.2, Basophils (%) (Auto) 0.6, Neutrophils # (Auto) 3.4, Lymphocytes # (Auto) 1.2L, Monocytes # (Auto) 0.3, Eosinophils # (Auto) 0.1, Basophils # (Auto) 0.0, Nucleated Red Blood Cells % (auto) 0.0, Erythrocyte Sedimentation Rate 85H, Prothrombin Time 13.2, Prothromb Time International Ratio 1.03, Anion Gap 6L, Glomerular Filtration Rate > 60.0, Estimated Mean Plasma Glucose 140H, Hemoglobin A1c 6.5, Calcium Level 9.5, Total Bilirubin 0.3, Aspartate Amino Transf (AST/SGOT) 19, A lanine Aminotransferase (ALT/SGPT) 21, Alkaline Phosphatase 138H, C-Reactive Protein, Quantitative 6.83H, Total Protein 7.7, Albumin 3.4, Albumin/Globulin Ratio 0.79L 02/14/19 16:53: Bedside Glucose (Misc Panel) 105 02/15/19 05:58: Bedside Glucose (Misc Panel) 67L 02/15/19 06:03: Anion Gap 5L, Glomerular Filtration Rate > 60.0, Calcium Level 8.9, Total Bilirubin 0.8#, Aspartate Amino Transf (AST/SGOT) 12, Alanine Aminotransferase (ALT/SGPT) 17, Alkaline Phosphatase 108, Total Protein 7.5, Albumin 2.9L, Albumin/Globulin Ratio 0.63L CBC/BMP Laboratory Tests 02/14/19 12:01 02/15/19 06:03 Microbiology Microbiology 02/14/19 Wound Culture, Received Pending 02/14/19 Blood Culture, Received Pending 02/14/19 Blood Culture, Received Pending JUAN DUNAWAY MD Feb 15, 2019 07:38
[2019-02-15] MEDS: ENOXAPARIN 40 MG/0.4 ML SYRINGE (J1650) SC SCH (09:35)
[2019-02-15] MEDS: ISOSORBIDE MONONITRATE 10MG TABLET PO SCH ×2 (09:35→16:42)
[2019-02-15] MEDS: DOCUSATE SODIUM 100 MG CAP PO SCH ×2 (09:36→20:07)
[2019-02-15] MEDS: LISINOPRIL 5 MG TAB PO SCH (09:36)
[2019-02-15] MEDS: GABAPENTIN 300 MG CAP PO SCH ×2 (09:36→20:07)
[2019-02-15] MEDS: SERTRALINE HCL 50 MG TAB PO SCH (09:36)
[2019-02-15] MEDS: PRAVASTATIN 20 MG TAB PO SCH (20:07)
[2019-02-15 22:00] VITALS: BP 152/74
[2019-02-16] VITALS (9 sets, daily range): BP systolic 117–171; BP diastolic 63–85
[2019-02-16] MEDS: HumaLOG INSULIN (NovoLOG) PER UNIT SC SCH ×5 (00:51→21:50)
[2019-02-16] MEDS: ceFAZolin SOD 2 GM in IV 1 EA IV SCH ×2 (00:51→09:36)
[2019-02-16] MEDS: RAMELTEON 8 MG TAB (ROZEREM) PO PRN (01:09)
[2019-02-16] MEDS: D5W/0.45% SODIUM CHLORIDE 1,000 ML IV SCH ×2 (03:32→11:48)
[2019-02-16] MEDS: LEVOTHYROXINE 75MCG TABLET (0.075MG) PO SCH (06:33)
[2019-02-16] MEDS: DOCUSATE SODIUM 100 MG CAP PO SCH ×2 (09:00→21:49)
[2019-02-16] MEDS ORDERED: PNEUMOCOCCAL VACCINE 0.5ML SYRINGE(90732) PNEUMOVAX 23 IM ONE (09:00)
[2019-02-16] MEDS ORDERED: FLUBLOK(EGG FREE)(QUAD)INFLUENZA VACC 0.5ML SYRINGE (90682)18YRS&OLDER IM ONE (09:00)
[2019-02-16] MEDS: ISOSORBIDE MONONITRATE 10MG TABLET PO SCH ×2 (09:00→16:55)
[2019-02-16] MEDS: GABAPENTIN 300 MG CAP PO SCH ×2 (09:00→21:49)
[2019-02-16 09:01] LABS: HEMATOCRIT 34.4 % (42.0-52.0); HEMOGLOBIN 11.4 g/dl (13.5-17.5); MEAN CORPUSCULAR HEMOGLOBIN 29.5 pg (27.0-33.0); MEAN CORPUSCULAR HGB CONC 33.1 g/dl (32.0-36.5); MEAN CORPUSCULAR VOLUME 88.9 fl (80.0-96.0); PLATELET COUNT, AUTOMATED 294 10^3/uL (150-450); RED BLOOD COUNT 3.87 10^6/uL (4.30-6.10); WHITE BLOOD COUNT 4.5 10^3/uL (4.0-10.0)
[2019-02-16 09:16] LABS: BLOOD UREA NITROGEN 13 MG/DL (7-18); CARBON DIOXIDE LEVEL 29 MEQ/L (21-32); CHLORIDE LEVEL 109 MEQ/L (98-107); CREATININE FOR GFR 0.89 MG/DL (0.70-1.30); GLOMERULAR FILTRATION RATE > 60.0 (>42); GLUCOSE, FASTING 134 MG/DL (70-100); SODIUM LEVEL 142 MEQ/L (136-145)
[2019-02-16] MEDS: PIPERACILLIN/TAZOBACTAM SOD 3.375 GM in D5W MINI-BAG PLUS 50 ML IV SCH ×2 (12:00→17:47)
[2019-02-16] MEDS ORDERED: PROPOFOL 200 MG/20 ML VIAL As Ordered ONE (12:51)
[2019-02-16] MEDS ORDERED: LIDOCAINE 2% INJ 100 MG/5 ML SDV (FOR ANES.) As Ordered ONE (12:51)
[2019-02-16] MEDS ORDERED: ONDANSETRON 4MG/2ML VIAL (J2405) As Ordered ONE (12:51)
[2019-02-16] MEDS ORDERED: fentaNYL 100 MCG/2 ML INJECTION (J3010) As Ordered ONE (12:52)
[2019-02-16] MEDS ORDERED: LIDOCAINE 2% MDV 20 ML VIAL As Ordered ONE (12:54)
[2019-02-16] MEDS ORDERED: BUPIVACAINE HCL 0.5% 30 ML VIAL As Ordered ONE (12:54)
[2019-02-16] MEDS ORDERED: MIDAZOLAM INJ 2 MG/2 ML VIAL (J2250) As Ordered ONE (12:57)
[2019-02-16] MEDS ORDERED: ZOSYN 3.375 GM VIAL (J2543) As Ordered ONE (13:17)
[2019-02-16] MEDS ORDERED: PERCOCET 5MG/325MG TAB PO PRN ×2 (15:30)
[2019-02-16] MEDS ORDERED: NORCO, ANEXSIA 5/325MG TABLET (HYDROcodone/ACETAMINOPHEN) PO PRN (15:30)
[2019-02-16] MEDS ORDERED: LR 1,000 ML IV SCH (15:30)
[2019-02-16] MEDS ORDERED: fentaNYL 100 MCG/2 ML INJECTION (J3010) IV PRN (15:30)
[2019-02-16] MEDS ORDERED: ONDANSETRON 4MG/2ML VIAL (J2405) IV PRN (15:30)
[2019-02-16] MEDS: LISINOPRIL 5 MG TAB PO SCH (16:53)
[2019-02-16] MEDS: SERTRALINE HCL 50 MG TAB PO SCH (16:55)
--- NOTE | 2019-02-16 19:49 | IPNPDOC ---
Date Seen The patient was seen on 02/16/19. Progress Note SUBJECTIVE: Patient had no o/n events, plan for surgery 02/16. OBJECTIVE PHYSICAL EXAMINATION: VITAL SIGNS: see above GENERAL APPEARANCE: male in no acute distress, pleasant. HEENT:. Normocephalic, atraumatic, moist mucous membranes, Mallampati score of 4. CARDIOVASCULAR:, S1, S2, no murmurs. LUNGS:. Clear to auscultation bilaterally. ABDOMEN:, Positive bowel sounds, soft, not guarded. MUSCULOSKELETAL: One to 2+ edema on the left lower extremity, no edema on the right, left foot third digit positive for pustular drainage, capillary refill less than 3 seconds, dorsalis pedis and posterior tibial pulses 1-2+. NEUROLOGICAL: Alert and oriented 3. PSYCHIATRIC:, Appropriate affect, has capacity. LABORATORY DATA: See below. IMAGING: see Above MICROBIOLOGY: Please see below. ASSESSMENT: Pt is a 73yoM with PMH of DM II insulin-dependent, surgical history of multiple toe amputations follows with Dr. Johnson and complicated with diabetic neuropathy, cataracts, hypertension, hyperlipidemia, hypothyroidism, anxiety and depression and was sent over from the podiatry office for necrotic toe needing amputation of the third left digit. . PLAN: #Osteomyelitis of the third left toe: Consult should podiatry, spoke with him regarding plan. We'll make patient nothing by mouth with amputation planned for 02/16/2019, hold IV fluids, continue Lovenox for DVT prophylaxis, hold 6 hours prior to operation, follow up with ID for antibiotic management, PT eval, follow-up on cultures, patient's revised cardiac index score 0, clear for surgery. #Diabetes: Hold home insulin, place on insulin sliding scale, patient does report recent history of hypoglycemia, continue diabetic management. #HTN: cont home meds #HLD: cont home meds #DM neuropathy: cont home meds #hypothyroidism: cont home meds #mood disorder: cont home meds #tobacco abuse: educated pt on tobacco cessation #DVT ppx: lovenox Full code VS, I&O, 24H, Fishbone Vital Signs/I&O Vital Signs Date Time Temp Pulse Resp B/P (MAP) Pulse Ox O2 Delivery O2 Flow Rate FiO2 02/16/19 18:00 96.7 60 18 131/85 (100) 100 Room Air I&O- Last 24 Hours up to 6 AM 02/16/19 06:00 Intake Total 2630 ml Output Total 0 ml Balance 2630 ml Laboratory Data 24H LABS Laboratory Tests 2 02/15/19 22:18: Bedside Glucose (Misc Panel) 301H 02/16/19 00:27: Bedside Glucose (Misc Panel) 342H 02/16/19 06:21: Bedside Glucose (Misc Panel) 168H 02/16/19 08:33: Nucleated Red Blood Cells % (auto) 0.0, Anion Gap 4L, Glomerular Filtration Rate > 60.0, Calcium Level 9.0 02/16/19 11:11: Bedside Glucose (Misc Panel) 104 02/16/19 15:13: Bedside Glucose (Misc Panel) 98 02/16/19 16:47: Bedside Glucose (Misc Panel) 101 CBC/BMP Laboratory Tests 02/16/19 08:33 Microbiology Microbiology 02/16/19 Wound Culture, Received Pending 02/16/19 Anaerobic Culture, Received Pending 02/14/19 Wound Culture - Preliminary, Resulted Enterobacter Cloacae Complex Staphylococcus Aureus 02/14/19 Blood Culture - Preliminary, Resulted No Growth after 48 hours. All Specime... 02/14/19 Blood Culture - Preliminary, Resulted No Growth after 48 hours. All Specime... JUAN DUNAWAY MD Feb 16, 2019 19:49
--- NOTE | 2019-02-16 20:56 | CR ---
DATE OF CONSULTATION: 02/15/2019 CONSULTATION REPORT FOR: Dr. Bobbi Fragoso REASON FOR CONSULTATION: Evaluation of left third toe osteomyelitis with necrosis. HISTORY OF PRESENT ILLNESS: Mr. Begum is a 73-year-old gentleman with a history of insulin-dependent diabetes, diabetic neuropathy, and multiple toe amputations for osteomyelitis. The patient presented to podiatry office with a necrotic third toe on the left foot. He had noticed about three weeks prior to admission an ulcer but about a week prior, he was having some subjective fevers and chills along with cellulitis of the foot. He was on Augmentin as an outpatient. The patient had an episode of syncope where he got up and subsequently went felt syncopal. He denied any headache or changes in vision. No chest pain or shortness breath. No nausea, vomiting or diarrhea. No abdominal pain. The patient since admission has noted an improvement in his foot swelling and redness. He is going to the operating room tomorrow with Dr. Eldridge for amputation of the third toe and hopefully he could be discharged home per his wishes. The patient's A1c on admission was 6.5. PAST MEDICAL HISTORY: Significant for multiple episodes of osteomyelitis of the toes. He has two toes missing on the left foot and two and a half toes missing on the right foot. On 04/11/2018, he had a left second toe amputation secondary to osteomyelitis. He had a diabetic foot ulcer on 01/25/2019 which is the beginning of this infection with methicillin-sensitive Staphylococcus aureus (MSSA). On 10/02/2018, he had MSSA and Group C Streptococcus. REVIEW OF SYSTEMS: The patient denies any nausea, vomiting, diarrhea, abdominal pain. No chest pain or shortness of breath. No upper or lower extremity weakness. PAST SURGICAL HISTORY: Right fifth distal phalanx resected, hammertoe surgery February 2014, proximal right fifth toe arthroplasty November 2017, left second toe partial amputation, multiple different amputations between 2015 and 2017. FAMILY HISTORY: Sister had pancreatic cancer. Mother had stomach cancer. SOCIAL HISTORY: He is a former smoker. He quit 30 years ago. He denies alcohol or drug use. He lives with his . ALLERGIES: No known drug allergies. MEDICATIONS: - Augmentin one tablet by mouth twice a day filled on 02/05/2019 - Plavix 75 mg daily by mouth daily. - gabapentin 300 mg by mouth every morning and 600 mg every evening - ibuprofen 400 mg by mouth daily - insulin Tresiba 50 units subcutaneous twice a day - isosorbide 10 mg by mouth twice a day - levothyroxine 75 mcg by mouth daily - lisinopril 5 mg by mouth daily - metformin 1000 mg by mouth twice a day - Pravachol 40 mg by mouth at bedtime - sertraline 50 mg by mouth daily PHYSICAL EXAMINATION: He is a healthy-looking gentleman in no acute distress. HEART: Normal S1, S2. No murmurs, rubs or gallops. LUNGS: Clear. No wheezes, rales or rhonchi. ABDOMEN: Soft, nontender. No hepatosplenomegaly. BACK: No costovertebral angle (CVA) or lumbosacral tenderness. EXTREMITIES: No clubbing or cyanosis. He has +1 pitting edema of the left foot. Right foot has no edema. He has diminished pulses bilaterally. He has absent two and a half toes on the right foot, second tip amputation, third and fourth missing. The left foot, he has absent second toe and he has distal amputation of the third toe with necrosis, necrotic tissue foul-smelling discharge, surrounding cellulitis involving the toe and minimally the foot. LABORATORY DATA: White count is 5, hemoglobin 12.7, hematocrit 39, platelets 320, 67% neutrophils, 24% lymphocytes, 5% monocytes. ESR 85. Sodium 140, potassium 3.3 chloride 107, bicarbonate 28, BUN 17, creatinine 0.99, glucose 69, hemoglobin A1c 6.5, calcium 8.9, AST 12, ALT 17, alkaline phosphatase 108, total protein 7.5, albumin 2.9. Wound culture was positive for MSSA on 01/25/2019. Foot x-ray shows ulceration of the distal third toe with stable first and second distal phalanx amputations, peripheral vascular disease is noted. IMPRESSION: Acute osteomyelitis of the third toe with gangrene of the toe, elevated sedimentation rate and C-reactive protein (CRP), all consistent with acute osteomyelitis and soft tissue abscess. The patient will undergo amputation of the third toe. He had cultures from a couple of weeks ago positive for methicillin-sensitive Staphylococcus aureus (MSSA) and therefore, the patient has been treated with IV cefazolin 2 grams every eight hours. He is scheduled to go to the operating room tomorrow with Dr. Eldridge. Postoperatively, the patient could be discharged home on Keflex 500 mg by mouth four times a day for 10 days. The case has been discussed with Dr. Fragoso who agrees with the plan.
[2019-02-16] MEDS: PRAVASTATIN 20 MG TAB PO SCH (21:49)
[2019-02-16] MEDS: ACETAMINOPHEN TAB 650MG DOSE (2X325MG) PO PRN (21:50)
[2019-02-17] MEDS: PIPERACILLIN/TAZOBACTAM SOD 3.375 GM in D5W MINI-BAG PLUS 50 ML IV SCH ×4 (00:18→18:15)
[2019-02-17] MEDS: RAMELTEON 8 MG TAB (ROZEREM) PO PRN ×2 (00:23→22:00)
[2019-02-17 01:00] VITALS: BP 166/75
[2019-02-17] MEDS: LEVOTHYROXINE 75MCG TABLET (0.075MG) PO SCH (05:47)
[2019-02-17 06:00] VITALS: BP 138/56
[2019-02-17 06:06] LABS: HEMATOCRIT 37.3 % (42.0-52.0); HEMOGLOBIN 12.1 g/dl (13.5-17.5); MEAN CORPUSCULAR HEMOGLOBIN 29.7 pg (27.0-33.0); MEAN CORPUSCULAR HGB CONC 32.4 g/dl (32.0-36.5); MEAN CORPUSCULAR VOLUME 91.4 fl (80.0-96.0); PLATELET COUNT, AUTOMATED 311 10^3/uL (150-450); RED BLOOD COUNT 4.08 10^6/uL (4.30-6.10); WHITE BLOOD COUNT 6.6 10^3/uL (4.0-10.0)
[2019-02-17 06:27] LABS: BLOOD UREA NITROGEN 15 MG/DL (7-18); CALCIUM LEVEL 8.7 MG/DL (8.8-10.2); CARBON DIOXIDE LEVEL 29 MEQ/L (21-32); CHLORIDE LEVEL 106 MEQ/L (98-107); CREATININE FOR GFR 1.05 MG/DL (0.70-1.30); GLOMERULAR FILTRATION RATE > 60.0 (>42); GLUCOSE, FASTING 174 MG/DL (70-100); POTASSIUM SERUM 3.9 MEQ/L (3.5-5.1); SODIUM LEVEL 140 MEQ/L (136-145)
--- NOTE | 2019-02-17 07:58 | IPN ---
DATE: 02/16/2019 The patient is waiting for his surgery, amputation of his third toe. He denies any nausea, vomiting, diarrhea, abdominal pain. No fever or chills. He is hungry, as he is currently nothing by mouth. LABORATORY DATA: White count is 4.5, hemoglobin 11.4, hematocrit 34.4, platelets 294. Sodium 142, potassium 4, chloride 109, bicarbonate 29, BUN 13, creatinine 0.89, glucose 134, calcium 9. Wound cultures from 01/10/2019 had methicillin sensitive Staphylococcus aureus (MSSA), group B Strep. 01/25/2019 MSSA. The patient was treated with outpatient Augmentin and cultures from admission has Enterobacter cloacae and Staphylococcus aureus. Enterobacter is resistant to cefazolin. PHYSICAL EXAMINATION: Temperature is 96.7, pulse 64, respirations 18, blood pressure 159/62, oxygen saturation 97% on room air. HEART: Normal S1, S2. No murmurs. LUNGS: Clear. No wheezes, rales or rhonchi. ABDOMEN: Obese, soft, nontender. EXTREMITIES: No edema of the right foot. +1 edema of the left foot. Left foot third digit necrotic toe with purulent drainage, foul smelling. Dorsalis pedis pulses are +1. Motor examination normal. IMPRESSION: 1. Osteomyelitis of the left third toe with microbial naresh. The patient was on IV cefazolin but had failed outpatient Augmentin, so we will switch him to IV Zosyn to cover for anaerobes and Enterobacter. Patient is going to the operating room today for amputation. He is not being discharged home today. He will probably continue with IV antibiotics until Tuesday. The patient will have intraoperative culture and choice of antibiotic for outpatient therapy will depend on the cultures. 2. Insulin dependent diabetes. Very well controlled with hemoglobin A1/c of 6.5. PLAN: Discontinue IV cefazolin and switch to IV Zosyn. The patient will not be discharged today and will probably come back with an open wound that will be closed at a later time. The case has been discussed with Dr. Fragoso and Dr. Eldridge.
--- NOTE | 2019-02-17 07:59 | IPNPDOC ---
Date Seen The patient was seen on 02/17/19. Progress Note SUBJECTIVE: POD#1 (02/16/19) s/p L 3rd digit amputation, Patients left second toe culture on 02/15/2019 reveals in his symptoms, including Enterobacter cloacae complex, Alcaligenes Faecalis (Odarans), Achromobacter spp., staph aureus, and enterococcus faecalis , started on Zosyn 02/16. Ambulating to and from the restroom without difficulty. OBJECTIVE PHYSICAL EXAMINATION: VITAL SIGNS: Please see below. GENERAL APPEARANCE: male in no acute distress, pleasant. HEENT:. Normocephalic, atraumatic, moist mucous membranes, Mallampati score of 4. CARDIOVASCULAR:, S1, S2, no murmurs. LUNGS:. Clear to auscultation bilaterally. ABDOMEN:, Positive bowel sounds, soft, not guarded. MUSCULOSKELETAL: One to 2+ edema on the left lower extremity, no edema on the ri ght, left foot third digit positive for pustular drainage, capillary refill less than 3 seconds, dorsalis pedis and posterior tibial pulses 1-2+. NEUROLOGICAL: Alert and oriented 3. PSYCHIATRIC:, Appropriate affect, has capacity. LABORATORY DATA: See below. IMAGING: see Above MICROBIOLOGY: Please see above. ASSESSMENT: Pt is a 73yoM with PMH of DM II insulin-dependent, surgical history of multiple toe amputations follows with Dr. Johnson and complicated with diabetic neuropathy, cataracts, hypertension, hyperlipidemia, hypothyroidism, anxiety and depression and was sent over from the podiatry office for necrotic toe needing amputation of the third left digit. PLAN: #Osteomyelitis of the third left toe: POD#1 s/p amputation, continue Lovenox for DVT prophylaxis, follow up with ID for antibiotic management, started on Zosyn with cx, PT eval #Diabetes: Hold home insulin, place on insulin sliding scale, patient does report recent history of hypoglycemia, continue diabetic management. #HTN: cont home meds #HLD: cont home meds #DM neuropathy: cont home meds #hypothyroidism: cont home meds #mood disorder: cont home meds #tobacco abuse: educated pt on tobacco cessation #DVT ppx: lovenox Full code Dispo home 02/19 VS, I&O, 24H, Fishbone Vital Signs/I&O Vital Signs Date Time Temp Pulse Resp B/P (MAP) Pulse Ox O2 Delivery O2 Flow Rate FiO2 02/17/19 06:00 99.7 62 18 138/56 (83) 97 Room Air I&O- Last 24 Hours up to 6 AM 02/17/19 06:00 Intake Total 1940 ml Output Total 5 ml Balance 1935 ml Laboratory Data 24H LABS Laboratory Tests 2 02/16/19 08:33: Nucleated Red Blood Cells % (auto) 0.0, Anion Gap 4L, Glomerular Filtration Rate > 60.0, Calcium Level 9.0 02/16/19 11:11: Bedside Glucose (Misc Panel) 104 02/16/19 15:13: Bedside Glucose (Misc Panel) 98 02/16/19 16:47: Bedside Glucose (Misc Panel) 101 02/17/19 05:46: Nucleated Red Blood Cells % (auto) 0.0, Anion Gap 5L, Glomerular Filtration Rate > 60.0, Calcium Level 8.7L CBC/BMP Laboratory Tests 02/16/19 08:33 02/17/19 05:46 Microbiology Microbiology 02/16/19 Wound Culture, Received Pending 02/16/19 Anaerobic Culture, Received Pending 02/14/19 Wound Culture - Final, Complete Enterobacter Cloacae Complex Alcaligenes Faecalis (Odorans) Staphylococcus Aureus Enterococcus Faecalis 02/14/19 Blood Culture - Preliminary, Resulted No Growth after 48 hours. All Specime... 02/14/19 Blood Culture - Preliminary, Resulted No Growth after 48 hours. All Specime... JUAN DUNAWAY MD Feb 17, 2019 07:59
[2019-02-17] MEDS: DOCUSATE SODIUM 100 MG CAP PO SCH ×2 (09:00→21:57)
[2019-02-17] MEDS: ISOSORBIDE MONONITRATE 10MG TABLET PO SCH ×2 (09:24→18:14)
[2019-02-17] MEDS: GABAPENTIN 300 MG CAP PO SCH ×2 (09:24→21:57)
[2019-02-17] MEDS: SERTRALINE HCL 50 MG TAB PO SCH (09:24)
[2019-02-17] MEDS: LISINOPRIL 5 MG TAB PO SCH (09:24)
[2019-02-17] MEDS: HumaLOG INSULIN (NovoLOG) PER UNIT SC SCH ×4 (09:25→20:56)
[2019-02-17 10:00] VITALS: BP 138/62
[2019-02-17] MEDS: ACETAMINOPHEN TAB 650MG DOSE (2X325MG) PO PRN (12:25)
[2019-02-17 14:00] VITALS: BP 118/68
[2019-02-17] MEDS: PRAVASTATIN 20 MG TAB PO SCH (21:57)
[2019-02-17 22:00] VITALS: BP 136/59
[2019-02-18] MEDS: PIPERACILLIN/TAZOBACTAM SOD 3.375 GM in D5W MINI-BAG PLUS 50 ML IV SCH ×4 (00:04→18:19)
[2019-02-18] MEDS: LEVOTHYROXINE 75MCG TABLET (0.075MG) PO SCH (05:55)
[2019-02-18 06:00] VITALS: BP 134/58
[2019-02-18 06:40] LABS: HEMATOCRIT 31.8 % (42.0-52.0); HEMOGLOBIN 10.5 g/dl (13.5-17.5); MEAN CORPUSCULAR HEMOGLOBIN 29.7 pg (27.0-33.0); MEAN CORPUSCULAR VOLUME 89.8 fl (80.0-96.0); PLATELET COUNT, AUTOMATED 267 10^3/uL (150-450); RED BLOOD COUNT 3.54 10^6/uL (4.30-6.10); WHITE BLOOD COUNT 4.8 10^3/uL (4.0-10.0)
[2019-02-18 07:00] LABS: BLOOD UREA NITROGEN 17 MG/DL (7-18); CARBON DIOXIDE LEVEL 30 MEQ/L (21-32); CHLORIDE LEVEL 104 MEQ/L (98-107); CREATININE FOR GFR 1.09 MG/DL (0.70-1.30); GLOMERULAR FILTRATION RATE > 60.0 (>42); GLUCOSE, FASTING 140 MG/DL (70-100); POTASSIUM SERUM 3.7 MEQ/L (3.5-5.1); SODIUM LEVEL 139 MEQ/L (136-145)
[2019-02-18] MEDS: HumaLOG INSULIN (NovoLOG) PER UNIT SC SCH ×4 (07:30→20:12)
--- NOTE | 2019-02-18 08:13 | IPNPDOC ---
Date Seen The patient was seen on 02/18/19. Progress Note SUBJECTIVE: POD#2 (02/16/19) s/p L 3rd digit amputation, Patients left second toe culture on 02/15/2019 reveals in his symptoms, including Enterobacter cloacae complex, Alcaligenes Faecalis (Odarans), Achromobacter spp., staph aureus, and enterococcus faecalis , started on Zosyn 02/16. Ambulating to and from the restroom without difficulty. Cx obtained 02/16/19 of 3rd L toe: raoultella ornitholytica, raouletta planticola, and Staph Aureus, sensitive to Bactrim. Will d/w ID. D.w Podiatry, possible dc 02/19. OBJECTIVE PHYSICAL EXAMINATION: VITAL SIGNS: Please see below. GENERAL APPEARANCE: male in no acute distress, pleasant. HEENT:. Normocephalic, atraumatic, moist mucous membranes, Mallampati score of 4. CARDIOVASCULAR:, S1, S2, no murmurs. LUNGS:. Clear to auscultation bilaterally. ABDOMEN:, Positive bowel sounds, soft, not guarded. MUSCULOSKELETAL: One to 2+ edema on the left lower extremity wrapped, no edema on the right, capillary refill less than 3 seconds, dorsalis pedis and posterior tibial pulses 1-2+. NEUROLOGICAL: Alert and oriented 3. PSYCHIATRIC:, Appropriate affect, has capacity. LABORATORY DATA: See below. IMAGING: see Above MICROBIOLOGY: Please see above. ASSESSMENT: Pt is a 73yoM with PMH of DM II insulin-dependent, hx of surgical history of multiple toe amputations and complicated with diabetic neuropathy, cataracts, hypertension, hyperlipidemia, hypothyroidism, anxiety and depression and was sent over from the podiatry office for necrotic toe needing amputation of the third left digit. PLAN: #Osteomyelitis of the third left toe: POD#2 s/p amputation, continue Lovenox for DVT prophylaxis, follow up with ID for antibiotic management, started on Zosyn with cx, PT eval, follow-up with PID and dc Abx. #Diabetes: Hold home insulin, place on insulin sliding scale, patient does report recent history of hypoglycemia, continue diabetic management. #HTN: cont home meds #HLD: cont home meds #DM neuropathy: cont home meds #hypothyroidism: cont home meds #mood disorder: cont home meds #tobacco abuse: educated pt on tobacco cessation #DVT ppx: lovenox Full code Dispo home 02/19 VS, I&O, 24H, Fishbone Vital Signs/I&O Vital Signs Date Time Temp Pulse Resp B/P (MAP) Pulse Ox O2 Delivery O2 Flow Rate FiO2 02/18/19 06:00 97.8 61 16 134/58 (83) 98 Room Air I&O- Last 24 Hours up to 6 AM 02/18/19 06:00 Intake Total 1010 ml Output Total 0 ml Balance 1010 ml Laboratory Data 24H LABS Laboratory Tests 2 02/17/19 11:47: Bedside Glucose (Misc Panel) 211H 02/17/19 16:31: Bedside Glucose (Misc Panel) 159H 02/17/19 20:37: Bedside Glucose (Misc Panel) 160H 02/18/19 06:11: Nucleated Red Blood Cells % (auto) 0.0, Anion Gap 5L, Glomerular Filtration Rate > 60.0, Calcium Level 8.0L CBC/BMP Laboratory Tests 02/18/19 06:11 Microbiology Microbiology 02/16/19 Wound Culture - Preliminary, Resulted Raoultella Ornithinolytica Raoultella Planticola Staphylococcus Aureus 02/16/19 Anaerobic Culture, Resulted Pending 02/14/19 Wound Culture - Final, Complete Enterobacter Cloacae Complex Alcaligenes Faecalis (Odorans) Staphylococcus Aureus Enterococcus Faecalis 02/14/19 Blood Culture - Preliminary, Resulted No Growth after 72 hours. All specime... 02/14/19 Blood Culture - Preliminary, Resulted No Growth after 72 hours. All specime... JUAN DUNAWAY MD Feb 18, 2019 08:13
[2019-02-18] MEDS: DOCUSATE SODIUM 100 MG CAP PO SCH ×2 (09:00→20:06)
[2019-02-18] MEDS: GABAPENTIN 300 MG CAP PO SCH ×2 (09:16→20:06)
[2019-02-18] MEDS: LISINOPRIL 5 MG TAB PO SCH (09:17)
[2019-02-18] MEDS: ISOSORBIDE MONONITRATE 10MG TABLET PO SCH ×2 (09:17→18:19)
[2019-02-18] MEDS: SERTRALINE HCL 50 MG TAB PO SCH (09:17)
[2019-02-18] MEDS: ACETAMINOPHEN TAB 650MG DOSE (2X325MG) PO PRN (09:21)
[2019-02-18 14:00] VITALS: BP 127/56
[2019-02-18] MEDS: PRAVASTATIN 20 MG TAB PO SCH (20:07)
[2019-02-18 22:00] VITALS: BP 142/64
[2019-02-19] MEDS: PIPERACILLIN/TAZOBACTAM SOD 3.375 GM in D5W MINI-BAG PLUS 50 ML IV SCH ×3 (00:48→12:00)
[2019-02-19] MEDS: RAMELTEON 8 MG TAB (ROZEREM) PO PRN (00:48)
[2019-02-19] MEDS: LEVOTHYROXINE 75MCG TABLET (0.075MG) PO SCH (05:35)
[2019-02-19 06:00] VITALS: BP 138/59
--- NOTE | 2019-02-19 06:26 | IPN ---
DATE: 02/18/2019 at 5:16 p.m. CHIEF COMPLAINT: Patient seen at bedside for evaluation of his left foot. The bandage was removed today. There is an iodoform gauze drain in place. This was removed. The wound margins display good granulation tissue and are viable. Laboratory studies were reviewed. White count is 4.8. Bone culture reveals Staphylococcus aureus and Raoultella which is sensitive to Bactrim and ampicillin sulbactam. The patient has been on Augmentin. His Staphylococcus aureus culture is pending, however, most likely it is methicillin sensitive since he has grown this in the past. ASSESSMENT: Status post third toe amputation left foot. PLAN: The drain was pulled. A dry sterile dressing was applied. The patient will have his antibiotics monitored by infectious disease. He will be seen in my office next week for evaluation. His questions were answered. The patient can be discharged on by mouth antibiotics in the morning.
[2019-02-19 08:00] LABS: BLOOD UREA NITROGEN 15 MG/DL (7-18); CALCIUM LEVEL 8.9 MG/DL (8.8-10.2); CARBON DIOXIDE LEVEL 29 MEQ/L (21-32); CHLORIDE LEVEL 108 MEQ/L (98-107); CREATININE FOR GFR 0.97 MG/DL (0.70-1.30); GLOMERULAR FILTRATION RATE > 60.0 (>42); GLUCOSE, FASTING 139 MG/DL (70-100); POTASSIUM SERUM 3.6 MEQ/L (3.5-5.1); SODIUM LEVEL 143 MEQ/L (136-145)
[2019-02-19 08:25] VITALS: BP 138/61
[2019-02-19] MEDS: DOCUSATE SODIUM 100 MG CAP PO SCH (08:25)
[2019-02-19] MEDS: ISOSORBIDE MONONITRATE 10MG TABLET PO SCH (08:25)
[2019-02-19] MEDS: HumaLOG INSULIN (NovoLOG) PER UNIT SC SCH ×2 (08:25→12:00)
[2019-02-19] MEDS: SERTRALINE HCL 50 MG TAB PO SCH (08:25)
[2019-02-19] MEDS: GABAPENTIN 300 MG CAP PO SCH (08:25)
[2019-02-19] MEDS: LISINOPRIL 5 MG TAB PO SCH (08:26)
--- NOTE | 2019-02-19 08:52 | DS.PDOC ---
Discharge Summary General Date of Admission Feb 14, 2019 at 13:27 Date of Discharge 02/19/19 Discharge Summary PROCEDURES PERFORMED DURING STAY: Amputation of the left third digit. ADMITTING DIAGNOSES: 1. Osteomyelitis. DISCHARGE DIAGNOSES: 1. Osteomyelitis. COMPLICATIONS/CHIEF COMPLAINT: Diabetes Osteomyelitis 3RD Toe Left Foot. HISTORY OF PRESENT ILLNESS & HOSPITAL COURSE: Pt is a 73yoM with PMH of DM II insulin-dependent, hx of surgical history of multiple toe amputations and compli cated with diabetic neuropathy, cataracts, hypertension, hyperlipidemia, hypothyroidism, anxiety and depression and was sent over from the podiatry office for necrotic toe needing amputation of the third left digit. He has osteomyelitis of the third left toe, POD#3 (02/16/19) s/p amputation, was sta rted on Zosyn with cx. Patients left second toe culture on 02/15/2019 reveals in his symptoms, including Enterobacter cloacae complex, Alcaligenes Faecalis (Odarans), Achromobacter spp., staph aureus, and enterococcus faecalis , started on Zosyn 02/16 (received 3 days). Cx obtained 02/16/19 of 3rd L toe: raoultella ornitholytica, raouletta planticola, and Staph Aureus, sensitive to Bactrim. Patient was ambulating without difficulty. On telemetry, he was found to be bradycardic, EKG reveals a heart rate consistent with bradycardia, in comparison to his EKG in 2014, was also bradycardic. EKG also revealed possible right bundle branch block, patient was asymptomatic, he denies any headaches, lightheadedness, dizziness, chest pain, shortness of breath. He was instructed to follow-up with his PCP to 2 weeks for hospitalization and possible further workup of bradycardia. Discussed case with infectious disease, well discharge him on appropriate antibiotics and course. No other changes with home medications. He is to follow-up with podiatry in 1-2 weeks. All questions were answered. DISCHARGE MEDICATIONS: Please see below. ALLERGIES: Please see below. PHYSICAL EXAMINATION ON DISCHARGE: VITAL SIGNS: Please see below. GENERAL APPEARANCE: male in no acute distress, pleasant. HEENT:. Normocephalic, atraumatic, moist mucous membranes, Mallampati score of 4. CARDIOVASCULAR:, S1, S2, no murmurs. LUNGS:. Clear to auscultation bilaterally. ABDOMEN:, Positive bowel sounds, soft, not guarded. MUSCULOSKELETAL: L Foot wrapped, wound closed, draining serous to pustular drainage NEUROLOGICAL: Alert and oriented 3. PSYCHIATRIC:, Appropriate affect, has capacity. LABORATORY DATA: Please see below. IMAGING: see H&P PROGNOSIS: Good ACTIVITY: As tolerated. DIET: diabetic/heart healthy DISCHARGE PLAN: home DISPOSITION: home. DISCHARGE INSTRUCTIONS: 1. see above. ITEMS TO FOLLOWUP ON ON OUTPATIENT: 1. see above. DISCHARGE CONDITION: Stable. TIME SPENT ON DISCHARGE: 35 minutes. Vital Signs/I&Os Vital Signs Date Time Temp Pulse Resp B/P (MAP) Pulse Ox O2 Delivery O2 Flow Rate FiO2 02/19/19 08:25 138/61 02/19/19 06:22 49 02/19/19 06:00 98.1 17 96 Room Air I&O- Last 24 Hours up to 6 AM 02/19/19 06:00 Intake Total 1840 ml Balance 1840 ml Laboratory Data Labs 24H Laboratory Tests 2 02/18/19 11:30: Bedside Glucose (Misc Panel) 174H 02/18/19 16:24: Bedside Glucose (Misc Panel) 278H 02/18/19 20:05: Bedside Glucose (Misc Panel) 321H 02/19/19 05:49: Anion Gap 6L, Glomerular Filtration Rate > 60.0, Calcium Level 8.9 02/19/19 08:14: Bedside Glucose (Misc Panel) 150H CBC/BMP Laboratory Tests 02/19/19 05:49 FSBS Laboratory Tests Test 02/18/19 11:30 02/18/19 16:24 02/18/19 20:05 02/19/19 08:14 Range/Units Bedside Glucose (Misc Panel) 174 278 321 150 83-110 MG/DL Microbiology Microbiology 02/16/19 Wound Culture - Final, Resulted Raoultella Ornithinolytica Raoultella Planticola Staphylococcus Aureus Enterococcus Faecalis 02/16/19 Anaerobic Culture, Resulted Pending 02/14/19 Wound Culture - Final, Complete Enterobacter Cloacae Complex Alcaligenes Faecalis (Odorans) Staphylococcus Aureus Enterococcus Faecalis 02/14/19 Blood Culture - Preliminary, Resulted No Growth after 72 hours. All specime... 02/14/19 Blood Culture - Preliminary, Resulted No Growth after 72 hours. All specime... Discharge Medications Scheduled Clopidogrel Bisulfate (Clopidogrel) 75 Mg Tablet, 75 MG PO DAILY, (Reported) PATIENT STATES HE RAN OUT OF THIS MEDICATION ABOUT 2 WEEKS AGO AND CALLED MD TO REFILL, BUT HASN'T GOTTEN REFILLS YET Gabapentin (Gabapentin) 300 Mg Capsule, 300 MG PO DAILY, (Reported) Gabapentin (Gabapentin) 300 Mg Capsule, 600 MG PO QHS, (Reported) Ibuprofen (Ibuprofen) 200 Mg Capsule, 400 MG PO DAILY, (Reported) Insulin Degludec (Tresiba Flextouch U-200) 200 Unit/1 Ml Insuln.pen, 50 UNITS SQ BID, (Reported) PATIENT STATES HE HIS SUGARS HAVE BEEN RUNNING LOW IN THE AFTERNOON SO HE'S ONLY BEEN USING AT NIGHT Isosorbide Mononitrate (Isosorbide Mononitrate) 10 Mg Tab, 10 MG PO BID, (Reported) Levofloxacin (Levofloxacin) 500 Mg Tablet, 1 TAB PO DAILY Levothyroxine Sodium (Synthroid) 75 Mcg Tab, 75 MCG PO DAILY, (Reported) Lisinopril (Lisinopril) 5 Mg Tab, 5 MG PO DAILY, (Reported) Metformin HCl (Metformin HCl) 1,000 Mg Tab, 1,000 MG PO BID, (Reported) Pravastatin Sodium (Pravastatin Sodium) 40 Mg Tab, 40 MG PO QHS, (Reported) Sertraline HCl (Sertraline HCl) 50 Mg Tab, 50 MG PO DAILY, (Reported) Allergies Coded Allergies: No Known Allergies (Unverified , 11/04/17) JUAN DUNAWAY MD Feb 19, 2019 08:52
[2019-02-19 09:03] LABS: HEMATOCRIT 32.9 % (42.0-52.0); HEMOGLOBIN 10.9 g/dl (13.5-17.5); MEAN CORPUSCULAR HEMOGLOBIN 29.8 pg (27.0-33.0); MEAN CORPUSCULAR HGB CONC 33.1 g/dl (32.0-36.5); MEAN CORPUSCULAR VOLUME 89.9 fl (80.0-96.0); PLATELET COUNT, AUTOMATED 285 10^3/uL (150-450); RED BLOOD COUNT 3.66 10^6/uL (4.30-6.10); WHITE BLOOD COUNT 4.6 10^3/uL (4.0-10.0)
[2019-02-19] MEDS ORDERED: BACT800T5 PO (10:02)
[2019-02-19] MEDS ORDERED: AMLO5TAB6 PO (10:12)
[2019-02-19] MEDS ORDERED: LEVO500T3 PO (11:07)
--- NOTE | 2019-02-19 16:28 | RO ---
DATE OF PROCEDURE: 02/16/2019 PREPROCEDURE DIAGNOSIS: Osteomyelitis third toe left foot. POSTPROCEDURE DIAGNOSIS: Osteomyelitis third toe left foot. PROCEDURE: Third toe amputation left foot. SURGEON: Kip Eldridge DPM AUTOMOBILE LOCATOR: None. ANESTHESIA: Local MAC HEMOSTASIS: None. ESTIMATED BLOOD LOSS: 5 mL. DRAINS UTILIZED: 1/4-inch Iodoform gauze. IRRIGATION: 3 liters dilute gentamicin solution. DESCRIPTION OF PROCEDURE: On 02/16/2019, this 79-year-old male was taken from his hospital room to the operating room and placed on the operating table in the supine position. Following the induction of IV sedation and local and regional anesthesia, the left lower extremity was prepped and draped in the usual aseptic manner. Attention was directed to the patient's left foot. There was noted to be a necrotic and stage IV ulceration of the third toe of the left foot. At this time, two semi-elliptical incisions were placed around the necrotic tissue creating an elliptical incision. Dissection was carried down to the base of the middle phalanx. Utilizing a power saw, an osteotomy was performed at the base of the proximal phalanx and the toe was removed. The wound was then lavaged with three liters of dilute vancomycin solution. All bleeders as encountered were electrocoagulated. There was no abscess formation. The wound was packed with 1/4-inch Iodoform gauze and three stitches were loosely placed around the third toe to prevent retraction for a delayed primary closure. If the drain is pulled, and it is granulating in by secondary intention, this may be allowed to fully granulate without closure. His questions were answered. ECTOR
--- NOTE | 2019-02-19 21:12 | ECGEPIP ---
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
== END 2019-02-19 13:06 | disposition home or self-care (01) | DRG 617 ==
LOC: M ED 11:18 → M ED INP 13:27 → M MSPAV 15:56
PROVIDERS: ADMIT Family Medicine; ATTEND Family Medicine
PROC: 0Y6U0Z0 Detachment at Left 3rd Toe, Complete, Open Approach (ICD-10-PCS; principal; 2019-02-16 11:30)
DX: E11.69 Type 2 diabetes mellitus with other specified complication (principal); M86.172 Other acute osteomyelitis, left ankle and foot; E11.52 Type 2 diabetes mellitus with diabetic peripheral angiopathy with gangrene; E11.40 Type 2 diabetes mellitus with diabetic neuropathy, unspecified; B95.2 Enterococcus as the cause of diseases classified elsewhere; I10 Essential (primary) hypertension; E78.5 Hyperlipidemia, unspecified; E03.9 Hypothyroidism, unspecified; F41.9 Anxiety disorder, unspecified; F32.9 Major depressive disorder, single episode, unspecified; B95.61 Methicillin susceptible Staphylococcus aureus infection as the cause of diseases classified elsewhere; Z89.421 Acquired absence of other right toe(s); Z89.422 Acquired absence of other left toe(s); Z87.891 Personal history of nicotine dependence; Z79.4 Long term (current) use of insulin; Z79.899 Other long term (current) drug therapy; Z79.02 Long term (current) use of antithrombotics/antiplatelets

== ENCOUNTER → 2019-05-22 | Outpatient (REF) | payer MEDICARE ==
[~2019-05-22] MED LIST changes: +AMLO5TAB6 PO; +GABA-843 PO; +IBUP200C28 PO; +LEVO500T3 PO; +TRES1INJ SQ
== END ==
LOC: M LAB REF 15:23
PROVIDERS: ATTEND Podiatrist
DX: M79.672 Pain in left foot (principal)

== ENCOUNTER → 2020-03-26 | Outpatient (REF) | payer MEDICARE ==
[~2020-03-26] MED LIST changes: +AMLO1TAB24 PO; -AMLO5TAB6 PO; -ASPI81TA85 PO; +ASPI81TA86 PO; -PARO15TA PO; +PARO30TA4 PO
== END ==
LOC: M LAB REF 15:17
PROVIDERS: ATTEND Podiatrist
DX: L03.039 Cellulitis of unspecified toe (principal); M79.672 Pain in left foot

== ENCOUNTER → 2020-05-01 | Outpatient (REF) | payer MEDICARE ==
[~2020-05-01] MED LIST changes: +GABA-282 PO; -GABA-843 PO; -LISI-542 PO; +LISI-898 PO
== END ==
LOC: M LAB REF 15:03
PROVIDERS: ATTEND Podiatrist
DX: M79.672 Pain in left foot (principal)

== ENCOUNTER → 2020-05-26 | Outpatient (CLI) | payer MEDICARE ==
[~2020-05-26] MED LIST changes: +AMLO1TAB24; +ATOR80TA59; +BASA100I SQ; +LATA0.0015; +OXYC1TAB23
== END ==
LOC: M LABSMTC 12:27
PROVIDERS: ATTEND Anesthesiology
DX: Z01.812 Encounter for preprocedural laboratory examination (principal); Z20.822 Contact with and (suspected) exposure to COVID-19

== ENCOUNTER → 2020-05-27 | Outpatient (CLI) | payer MEDICARE ==
--- NOTE | 2020-05-27 10:43 | REP ---
INDICATION: ACUTE OSTEOMYELITIS LEFT ANKLE/FOOT, LAB 1ST EKG 2ND THEN XR COMPARISON: None. TECHNIQUE: PA and lateral. FINDINGS: The mediastinum and cardiac silhouette are normal. The lung crowley are clear and without acute consolidation, effusion, or pneumothorax. The skeletal structures are intact and normal. IMPRESSION: No acute cardiopulmonary process. <Electronically signed by Joe Fox > 05/27/20 [id number]
[2020-05-27 11:07] LABS: BASO % 0.8 % (0.0-1.0); EOS # 0.1 10^3/uL (0.0-0.5); EOS % 1.9 % (0.0-3.0); HEMATOCRIT 40.7 % (42.0-52.0); HEMOGLOBIN 13.2 g/dl (13.5-17.5); LYMPH # 1.5 10^3/uL (1.5-5.0); LYMPH % 28.8 % (24.0-44.0); MEAN CORPUSCULAR HEMOGLOBIN 28.9 pg (27.0-33.0); MEAN CORPUSCULAR HGB CONC 32.4 g/dl (32.0-36.5); MEAN CORPUSCULAR VOLUME 89.3 fl (80.0-96.0); MONO # 0.4 10^3/uL (0.0-0.8); MONO % 6.8 % (2.0-8.0); NEUTROPHILS # 3.1 10^3/uL (1.5-8.5); NEUTROPHILS % 60.5 % (36.0-66.0); PLATELET COUNT, AUTOMATED 289 10^3/uL (150-450); RED BLOOD COUNT 4.56 10^6/uL (4.30-6.10); WHITE BLOOD COUNT 5.1 10^3/uL (4.0-10.0)
[2020-05-27 11:26] LABS: ALBUMIN 3.8 GM/DL (3.2-5.2); ALT/SGPT 15 U/L (12-78); BILIRUBIN,TOTAL 0.3 MG/DL (0.2-1.0); BLOOD UREA NITROGEN 19 MG/DL (7-18); CALCIUM LEVEL 9.5 MG/DL (8.8-10.2); CARBON DIOXIDE LEVEL 31 MEQ/L (21-32); CHLORIDE LEVEL 104 MEQ/L (98-107); CREATININE FOR GFR 1.01 MG/DL (0.70-1.30); GLOMERULAR FILTRATION RATE > 60.0 (>42); GLUCOSE, FASTING 180 MG/DL (70-100); POTASSIUM SERUM 4.6 MEQ/L (3.5-5.1); SODIUM LEVEL 138 MEQ/L (136-145); TOTAL PROTEIN 8.1 GM/DL (6.4-8.2)
--- NOTE | 2020-05-27 19:40 | ECGEPIP ---
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
== END ==
LOC: M LAB 10:10
PROVIDERS: ATTEND Podiatrist
DX: Z01.818 Encounter for other preprocedural examination (principal); M86.172 Other acute osteomyelitis, left ankle and foot; M79.672 Pain in left foot

== ENCOUNTER 2020-05-30 11:47 | Day surgery (SDC) | payer MEDICARE ==
[~2020-05-30] VITALS: Ht 180.3 cm; Wt 104.5 kg
[~2020-05-30 11:47] MED LIST changes: +LR 1,000 ML IV ONE; +ceFAZolin SOD 2 GM in IV 1 EA IV ONE
[2020-05-30] MEDS ORDERED: LIDOCAINE 2% MDV 20ML VIAL As Ordered ONE (13:42)
[2020-05-30] MEDS ORDERED: BACITRACIN PWD 50,000 UNITS VIAL As Ordered ONE (13:42)
[2020-05-30] MEDS ORDERED: BUPIVACAINE HCL 0.5% 30 ML VIAL As Ordered ONE (13:42)
[2020-05-30] MEDS ORDERED: NEOSPORIN GU IRRIG 20 ML VIAL As Ordered ONE (13:42)
[2020-05-30] MEDS ORDERED: dexameTHASONE 4 MG/ML 1ML VIAL (J1100 PER 1MG) As Ordered ONE (14:44)
[2020-05-30] MEDS ORDERED: LIDOCAINE 2% 100MG/5ML SDV (FOR ANES.) As Ordered ONE (14:44)
[2020-05-30] MEDS ORDERED: fentaNYL 100 MCG/2 ML INJECTION (J3010) As Ordered ONE (14:44)
[2020-05-30] MEDS ORDERED: ONDANSETRON 4MG/2ML VIAL As Ordered ONE (14:44)
[2020-05-30] MEDS ORDERED: MIDAZOLAM INJ 2MG/2ML VIAL (J2250 PER 1MG) As Ordered ONE (14:44)
[2020-05-30] MEDS ORDERED: propofoL 500 MG/50 ML VIAL As Ordered ONE (14:44)
[2020-05-30] MEDS ORDERED: GENTAMICIN SULF 80MG/2ML VIAL As Ordered ONE (15:03)
--- NOTE | 2020-05-30 16:23 | REP ---
INDICATION: SP TOE AMP COMPARISON: 02/14/2019 TECHNIQUE: Portable AP, lateral, oblique views of left foot FINDINGS: Postsurgical changes including presumed acute amputations involving the 3rd and 5th toes along with previous amputations at the 1st and 2nd toes. Underlying degenerative changes noted. IMPRESSION: Postsurgical changes. <Electronically signed by Joe Fox > 05/30/20 [id number]
[2020-05-30 16:37] VITALS: BP 169/85
--- NOTE | 2020-05-30 17:55 | RO ---
OPERATIVE NOTE DATE OF OPERATION: 05/30/2020 PREOPERATIVE DIAGNOSIS: Osteomyelitis, 5th toe, left foot. POSTOPERATIVE DIAGNOSIS: Osteomyelitis, 5th toe, left foot. PROCEDURE: Fifth toe amputation, left foot. ANESTHESIA: Local monitored anesthesia care (MAC). IRRIGATION: Dilute gentamicin solution, 1 liter, low-pressure pulse lavage system. HEMOSTASIS: None. SURGEON: Dr. Eldridge SLATE TRIMMER: None. DESCRIPTION OF OPERATION: On 05/30/2020, this 75-year-old male was taken from his hospital room to the operating room and placed on the operating table in the supine position. Following the induction of intravenous (IV) sedation and local and regional anesthesia, the left lower extremity was prepped and draped in the usual aseptic manner. Attention was directed to the patient's 5th toe, where there was noted to be necrotic distal tip of the 5th toe, and the bone was exposed into the wound margin. At this time, a modified fish-mouth incision was placed over the 5th toe, encompassing the entire necrotic area. All bleeders as encountered were electrocoagulated. A serial elevator was placed into the metatarsophalangeal joint after a capsulotomy was performed, exposing the joint, and the 5th proximal phalanx was completely disarticulated from the metatarsophalangeal joint. This was sent for aerobic and anaerobic culture. The necrotic tissue was sent for gross examination. The wound was flushed with copious amounts of dilute gentamicin solution with a low-pressure pulse lavage system, and the wound was electrocoagulated for any remaining bleeders. The wound was then closed with 4-0 nylon suture in a simple interrupted-type fashion. Dry sterile dressing was applied, consisting of adaptic, 4 x 4's, 4 x 4 splints, Yves, Kerlix, and Coban. Patient having apparently tolerated the surgical procedure well was taken from the operating room (OR) to the recovery room for further monitoring by the anesthesia department. Postoperative instructions given upon discharge.
== END 2020-05-30 16:58 | disposition home or self-care (01) ==
LOC: M SDC 11:47
PROVIDERS: ATTEND Podiatrist
DX: M86.172 Other acute osteomyelitis, left ankle and foot (principal); E11.621 Type 2 diabetes mellitus with foot ulcer; E11.42 Type 2 diabetes mellitus with diabetic polyneuropathy; E11.51 Type 2 diabetes mellitus with diabetic peripheral angiopathy without gangrene; L03.032 Cellulitis of left toe; L03.119 Cellulitis of unspecified part of limb; L97.422 Non-pressure chronic ulcer of left heel and midfoot with fat layer exposed; L97.526 Non-pressure chronic ulcer of other part of left foot with bone involvement without evidence of necrosis; L85.0 Acquired ichthyosis; E03.9 Hypothyroidism, unspecified; Z79.84 Long term (current) use of oral hypoglycemic drugs; Z79.4 Long term (current) use of insulin; Z79.899 Other long term (current) drug therapy
CPT/HCPCS: 28820; 73630; 87070; 87075; 87077; 87186; 87205; 88305; 88311; J0690; J1100; J1580; J2250; J2405; J3010

== ENCOUNTER → 2021-05-07 | Outpatient (REF) | payer MEDICARE ==
[~2021-05-07] MED LIST changes: -DOXY100C PO; +DOXY100C3 PO; +GABA-283 PO; -GABA-845 PO; -LEVO500T3 PO; +LEVO500T4 PO; -LISI-898 PO; +LISI5TAB11 PO; -LR 1,000 ML IV ONE; +[UNRECOGNIZED DRUG - CODE] PO; -[UNRECOGNIZED DRUG - CODE] PO; -ceFAZolin SOD 2 GM in IV 1 EA IV ONE
== END ==
LOC: M LAB REF 15:39
PROVIDERS: ATTEND Podiatrist
DX: M79.671 Pain in right foot (principal); L03.039 Cellulitis of unspecified toe

== ENCOUNTER 2021-06-23 16:14 | Day surgery (SDC) | payer MEDICARE ==
[~2021-06-23] VITALS: Ht 182.9 cm; Wt 100.3 kg
[~2021-06-23 16:14] MED LIST changes: +LIDOCAINE 1% MDV 20ML VIAL SQ PRN
[2021-06-23] MEDS ORDERED: LIDOCAINE 2% MDV 20ML VIAL As Ordered ONE (16:29)
[2021-06-23] MEDS ORDERED: BUPIVACAINE HCL 0.5% 10ML VIAL As Ordered ONE (16:29)
[2021-06-23] MEDS ORDERED: ROPIvacaine 0.5% 30ML INJECTION (J2795 PER 1MG) As Ordered ONE (16:29)
[2021-06-23] MEDS ORDERED: AMOX875T2 (16:31)
[2021-06-23] MEDS ORDERED: LIDOCAINE 2% 100MG/5ML SDV (FOR ANES.) As Ordered ONE (16:32)
[2021-06-23] MEDS ORDERED: fentaNYL 100 MCG/2 ML INJECTION As Ordered ONE (16:32)
[2021-06-23] MEDS ORDERED: propofoL 200 MG/20 ML VIAL As Ordered ONE (16:32)
[2021-06-23] MEDS ORDERED: VANCOMYCIN HCL 750 MG, VIAL MATE ADAPTER 1 EACH in NS 250 ML IV ONE ×2 (17:00→18:00)
[2021-06-23] MEDS ORDERED: LR 1,000 ML IV ONE (17:20)
[2021-06-23] MEDS ORDERED: GENTAMICIN SULF 80MG/2ML VIAL As Ordered ONE (17:35)
[2021-06-23 18:16] LABS: HEMATOCRIT 38.2 % (42.0-52.0); HEMOGLOBIN 12.6 g/dl (13.5-17.5); MEAN CORPUSCULAR HEMOGLOBIN 28.7 pg (27.0-33.0); PLATELET COUNT, AUTOMATED 319 10^3/uL (150-450); RED BLOOD COUNT 4.39 10^6/uL (4.30-6.10)
[2021-06-23 18:36] LABS: BLOOD UREA NITROGEN 17 MG/DL (7-18); CALCIUM LEVEL 9.4 MG/DL (8.8-10.2); CARBON DIOXIDE LEVEL 29 MEQ/L (21-32); CHLORIDE LEVEL 99 MEQ/L (98-107); CREATININE FOR GFR 1.09 MG/DL (0.70-1.30); GLOMERULAR FILTRATION RATE > 60.0 (>42); GLUCOSE, FASTING 223 MG/DL (70-100); POTASSIUM SERUM 4.6 MEQ/L (3.5-5.1); SODIUM LEVEL 134 MEQ/L (136-145)
[2021-06-23 18:57] VITALS: BP 144/67
[2021-06-24] MEDS ORDERED: UNRESOLVED CLARIFICATION ENTRY XX SCH (00:01)
== END 2021-06-23 19:10 | disposition home or self-care (01) ==
LOC: M SDC 16:14
PROVIDERS: ATTEND Podiatrist
DX: M86.671 Other chronic osteomyelitis, right ankle and foot (principal); J09.X2 Influenza due to identified novel influenza A virus with other respiratory manifestations; E11.42 Type 2 diabetes mellitus with diabetic polyneuropathy; E11.51 Type 2 diabetes mellitus with diabetic peripheral angiopathy without gangrene; B35.1 Tinea unguium; L97.512 Non-pressure chronic ulcer of other part of right foot with fat layer exposed; L97.514 Non-pressure chronic ulcer of other part of right foot with necrosis of bone; I10 Essential (primary) hypertension; E78.5 Hyperlipidemia, unspecified; E03.9 Hypothyroidism, unspecified; F32.9 Major depressive disorder, single episode, unspecified; F41.9 Anxiety disorder, unspecified; M48.02 Spinal stenosis, cervical region; Z79.899 Other long term (current) drug therapy; Z79.2 Long term (current) use of antibiotics; Z79.84 Long term (current) use of oral hypoglycemic drugs; Z79.4 Long term (current) use of insulin; Z79.02 Long term (current) use of antithrombotics/antiplatelets
CPT/HCPCS: 28820; 36415; 80048; 85027; 87070; 87075; 87076; 87077; 87186; 87428; 88307; J1580; J2795; J3010; J3370

== ENCOUNTER → 2021-08-04 | Outpatient (REF) | payer MEDICARE ==
[~2021-08-04] MED LIST changes: +AMOX875T2; -LIDOCAINE 1% MDV 20ML VIAL SQ PRN
== END ==
LOC: M LAB REF 09:31
PROVIDERS: ATTEND Podiatrist
DX: L03.031 Cellulitis of right toe (principal); M79.671 Pain in right foot

== ENCOUNTER → 2021-09-01 | Outpatient (CLI) | payer MEDICARE | LOC: M LABSMTC 09:06 | PROVIDERS: ATTEND Anesthesiology | DX: Z01.812 Encounter for preprocedural laboratory examination (principal); Z20.822 Contact with and (suspected) exposure to COVID-19 ==

== ENCOUNTER 2021-09-04 09:20 | Day surgery (SDC) | payer MEDICARE ==
[~2021-09-04] VITALS: Ht 180.3 cm; Wt 97.5 kg
[2021-09-04 10:00] LABS: HEMATOCRIT 39.4 % (42.0-52.0); HEMOGLOBIN 12.6 g/dl (13.5-17.5); MEAN CORPUSCULAR HEMOGLOBIN 28.9 pg (27.0-33.0); MEAN CORPUSCULAR VOLUME 90.4 fl (80.0-96.0); PLATELET COUNT, AUTOMATED 256 10^3/uL (150-450); RED BLOOD COUNT 4.36 10^6/uL (4.30-6.10); WHITE BLOOD COUNT 5.2 10^3/uL (4.0-10.0)
[2021-09-04] MEDS ORDERED: GENTAMICIN 100 MG in IV 1 EA IV ONE (10:15)
[2021-09-04] MEDS ORDERED: LIDOCAINE 2% 100MG/5ML SDV (FOR ANES.) As Ordered ONE (10:48)
[2021-09-04] MEDS ORDERED: propofoL 200 MG/20 ML VIAL As Ordered ONE (10:48)
[2021-09-04] MEDS ORDERED: dexameTHASONE 4 MG/ML 1ML VIAL (J1100 PER 1MG) As Ordered ONE (10:49)
[2021-09-04] MEDS ORDERED: ONDANSETRON 4MG/2ML VIAL As Ordered ONE (10:49)
[2021-09-04] MEDS ORDERED: fentaNYL 100 MCG/2 ML INJECTION As Ordered ONE (10:50)
[2021-09-04 10:55] LABS: BLOOD UREA NITROGEN 10 MG/DL (7-18); CALCIUM LEVEL 8.9 MG/DL (8.8-10.2); CARBON DIOXIDE LEVEL 30 MEQ/L (21-32); CHLORIDE LEVEL 108 MEQ/L (98-107); CREATININE FOR GFR 0.89 MG/DL (0.70-1.30); GLOMERULAR FILTRATION RATE > 60.0 (>42); GLUCOSE, FASTING 117 MG/DL (70-100); POTASSIUM SERUM 5.3 MEQ/L (3.5-5.1); SODIUM LEVEL 142 MEQ/L (136-145)
[2021-09-04] MEDS ORDERED: TOBRAMYCIN SULF 1.2GM VIAL As Ordered ONE (11:53)
[2021-09-04] MEDS ORDERED: LIDOCAINE 2% MDV 20ML VIAL As Ordered ONE (11:54)
[2021-09-04] MEDS ORDERED: BUPIVACAINE HCL 0.5% 30ML VIAL As Ordered ONE (11:54)
[2021-09-04] MEDS ORDERED: GENTAMICIN SULF 80MG/2ML VIAL As Ordered ONE ×2 (11:57→12:23)
[2021-09-04] MEDS ORDERED: LIDOCAINE PRES-FREE 2% 10ML AMP As Ordered ONE (11:59)
[2021-09-04] MEDS ORDERED: GLYCOPYRROLATE INJ 0.2 MG/ML 2 ML VIAL As Ordered ONE (12:36)
[2021-09-04 13:31] VITALS: BP 143/67
== END 2021-09-04 13:53 | disposition home or self-care (01) ==
LOC: M SDC 09:20
PROVIDERS: ATTEND Podiatrist
DX: M86.671 Other chronic osteomyelitis, right ankle and foot (principal); L97.514 Non-pressure chronic ulcer of other part of right foot with necrosis of bone; L97.512 Non-pressure chronic ulcer of other part of right foot with fat layer exposed; L03.031 Cellulitis of right toe; Z89.429 Acquired absence of other toe(s), unspecified side; E11.69 Type 2 diabetes mellitus with other specified complication; E11.622 Type 2 diabetes mellitus with other skin ulcer; E11.42 Type 2 diabetes mellitus with diabetic polyneuropathy; E11.51 Type 2 diabetes mellitus with diabetic peripheral angiopathy without gangrene; E11.621 Type 2 diabetes mellitus with foot ulcer; B35.1 Tinea unguium; E11.319 Type 2 diabetes mellitus with unspecified diabetic retinopathy without macular edema; E11.36 Type 2 diabetes mellitus with diabetic cataract; E78.5 Hyperlipidemia, unspecified; F32.1 Major depressive disorder, single episode, moderate; F41.9 Anxiety disorder, unspecified; I45.10 Unspecified right bundle-branch block; I10 Essential (primary) hypertension; E03.9 Hypothyroidism, unspecified; M50.30 Other cervical disc degeneration, unspecified cervical region; F17.220 Nicotine dependence, chewing tobacco, uncomplicated; Z79.899 Other long term (current) drug therapy; Z79.4 Long term (current) use of insulin; Z79.84 Long term (current) use of oral hypoglycemic drugs; Z79.890 Hormone replacement therapy
CPT/HCPCS: 11044; 36415; 73630; 76000; 80048; 85027; 88304; 88311; C1713; J1580; J2405; J3010; J3260

== ENCOUNTER → 2021-10-22 | Outpatient (REF) | payer MEDICARE | LOC: M LAB REF 15:50 | PROVIDERS: ATTEND Podiatrist | DX: L03.031 Cellulitis of right toe (principal); M79.671 Pain in right foot; E11.621 Type 2 diabetes mellitus with foot ulcer ==

== ENCOUNTER → 2022-06-09 | Outpatient (REF) | payer MEDICARE ==
[~2022-06-09] MED LIST changes: +LEVO1TAB39 PO; -LEVO500T4 PO
== END ==
LOC: M LAB REF 16:22
PROVIDERS: ATTEND Podiatrist
DX: L97.512 Non-pressure chronic ulcer of other part of right foot with fat layer exposed (principal)

== ENCOUNTER → 2022-06-30 | Outpatient (REF) | payer MEDICARE ==
[~2022-06-30] MED LIST changes: +HUMA50IN4; +MINO100T PO; +OXYC1TAB23 PO
== END ==
LOC: M LAB REF 12:49
PROVIDERS: ATTEND Podiatrist
DX: M86.671 Other chronic osteomyelitis, right ankle and foot (principal)

== ENCOUNTER 2022-07-01 15:00 | Day surgery (SDC) | payer MEDICARE ==
[~2022-07-01] VITALS: Ht 180.3 cm; Wt 100.9 kg
[~2022-07-01 15:00] MED LIST changes: -HUMA50IN4; -MINO100T PO; -OXYC1TAB23 PO
[2022-07-01] MEDS ORDERED: MINO100T PO (15:14)
[2022-07-01] MEDS ORDERED: OXYC1TAB23 PO (15:14)
[2022-07-01] MEDS ORDERED: LR 1,000 ML IV SCH ×2 (15:40→19:05)
[2022-07-01] MEDS ORDERED: VANCOMYCIN HCL 1,000 MG, VIAL MATE ADAPTER 1 EACH in NS 250 ML IV ONE (15:40)
[2022-07-01] MEDS ORDERED: VANCOMYCIN HCL 1,000 MG, VIAL MATE ADAPTER 1 EACH in D5W 250 ML IV ONE (16:00)
[2022-07-01] MEDS ORDERED: INSULIN LISPRO (NovoLOG) PER UNIT SC PRN (16:05)
[2022-07-01] MEDS ORDERED: HUMA50IN4 (16:20)
[2022-07-01] MEDS ORDERED: LIDOCAINE 2% 100MG/5ML SDV (FOR ANES.) As Ordered ONE (17:25)
[2022-07-01] MEDS ORDERED: propofoL 500 MG/50 ML VIAL As Ordered ONE (17:25)
[2022-07-01] MEDS ORDERED: fentaNYL 100 MCG/2 ML INJECTION As Ordered ONE (17:26)
[2022-07-01] MEDS ORDERED: MIDAZOLAM INJ 2MG/2ML VIAL As Ordered ONE (17:26)
[2022-07-01] MEDS ORDERED: TOBRAMYCIN SULF 1.2GM VIAL As Ordered ONE (17:41)
[2022-07-01] MEDS ORDERED: LIDOCAINE 2% MDV 20ML VIAL As Ordered ONE (17:41)
[2022-07-01] MEDS ORDERED: GENTAMICIN SULF 80MG/2ML VIAL As Ordered ONE (17:41)
[2022-07-01] MEDS ORDERED: ROPIvacaine 0.5% 30ML VIAL As Ordered ONE (17:41)
[2022-07-01] MEDS ORDERED: BUPIVACAINE HCL 0.5% 30ML VIAL As Ordered ONE (17:42)
[2022-07-01] MEDS ORDERED: ONDANSETRON 4MG 2ML VIAL IV PRN (19:05)
[2022-07-01] MEDS ORDERED: fentaNYL 100 MCG/2 ML INJECTION IV PRN (19:05)
[2022-07-01] MEDS ORDERED: HYDROMORPHONE HCL 0.5 MG/ 0.5 ML SYRINGE IV PRN (19:05)
[2022-07-01] MEDS ORDERED: oxyCODONE 5MG TAB PO PRN (19:05)
[2022-07-01 19:45] VITALS: BP 161/75
== END 2022-07-01 20:12 | disposition home or self-care (01) ==
LOC: M SDC 15:00 → EEVIPCON 15:00 → M SDC 20:12
PROVIDERS: ATTEND Podiatrist
DX: M20.41 Other hammer toe(s) (acquired), right foot (principal); M86.171 Other acute osteomyelitis, right ankle and foot; I10 Essential (primary) hypertension; E11.9 Type 2 diabetes mellitus without complications; Z79.4 Long term (current) use of insulin; Z79.899 Other long term (current) drug therapy
CPT/HCPCS: 28810; 28820; 73630; 87070; 87075; 87077; 87186; 87205; 88305; 88311; 93005; J1580; J1815; J2250; J3010; J3260

== ENCOUNTER → 2022-11-24 | Outpatient (REF) | payer MEDICARE ==
[~2022-11-24] MED LIST changes: -GABA-283 PO; +GABA-284 PO; +HUMA50IN4; +MINO100T PO; +OXYC1TAB23 PO
== END ==
LOC: M LAB REF 10:53
PROVIDERS: ATTEND Podiatrist
DX: L03.129 Acute lymphangitis of unspecified part of limb (principal)

== ENCOUNTER 2022-12-28 16:27 | Day surgery (SDC) | payer MEDICARE ==
[~2022-12-28] VITALS: Ht 180.3 cm; Wt 98.4 kg
[2022-12-28] MEDS ORDERED: LIDOCAINE 2% MDV 20ML VIAL As Ordered ONE (16:43)
[2022-12-28] MEDS ORDERED: TOBRAMYCIN 80MG/2ML VIAL As Ordered ONE (16:43)
[2022-12-28] MEDS ORDERED: NEOSPORIN GU IRRIG 20ML VIAL As Ordered ONE (16:44)
[2022-12-28] MEDS ORDERED: fentaNYL 100 MCG/2 ML INJECTION As Ordered ONE (17:20)
[2022-12-28] MEDS ORDERED: propofoL 200 MG/20 ML VIAL As Ordered ONE (17:20)
[2022-12-28] MEDS ORDERED: propofoL 500 MG/50 ML VIAL As Ordered ONE (17:37)
[2022-12-28] MEDS ORDERED: TOBRAMYCIN SULF 1.2GM VIAL As Ordered ONE (17:52)
[2022-12-28] MEDS ORDERED: LIDOCAINE 2% 100MG/5ML SDV (FOR ANES.) As Ordered ONE (18:18)
[2022-12-28] MEDS: GENTAMICIN SULF 80MG/2ML VIAL As Ordered ONE ×2 (19:10→19:12)
[2022-12-28 19:45] VITALS: BP 157/71; TEMP 96.8; O2SAT 99
== END 2022-12-28 20:11 | disposition home or self-care (01) ==
LOC: M SDC 16:27
PROVIDERS: ATTEND Podiatrist
DX: E11.69 Type 2 diabetes mellitus with other specified complication (principal); M86.9 Osteomyelitis, unspecified; E78.5 Hyperlipidemia, unspecified; I10 Essential (primary) hypertension; Z79.84 Long term (current) use of oral hypoglycemic drugs; E03.9 Hypothyroidism, unspecified; Z79.890 Hormone replacement therapy; Z79.4 Long term (current) use of insulin; Z79.899 Other long term (current) drug therapy
CPT/HCPCS: 28140; 73620; 76000; 87070; 87075; 87076; 87077; 87186; C1713; J0665; J3010; J3260

== ENCOUNTER → 2023-06-13 | Outpatient (REF) | payer MEDICARE, MEDICAID ==
[~2023-06-13] MED LIST changes: -MINO100T PO; +MINO100T6 PO
== END ==
LOC: M LAB REF 16:16
PROVIDERS: ATTEND Podiatrist
DX: L03.115 Cellulitis of right lower limb (principal); B95.4 Other streptococcus as the cause of diseases classified elsewhere; A28.0 Pasteurellosis; B95.61 Methicillin susceptible Staphylococcus aureus infection as the cause of diseases classified elsewhere

== ENCOUNTER → 2023-09-19 | Outpatient (REF) | payer MEDICARE, MEDICAID | LOC: M LAB REF 16:27 | PROVIDERS: ATTEND Podiatrist | DX: L03.125 Acute lymphangitis of right lower limb (principal) ==